=== PATIENT | female | born 1995 | race Caucasian/White ===

== ENCOUNTER 2022-12-17 13:56 | Outpatient (CLI) | payer OTHER, SELFPAY | END 2022-12-17 13:57 | disposition home or self-care (01) | LOC: NFLDREF 14:05 | PROVIDERS: PCP Family Medicine; Visit Provider Obstetrics & Gynecology | DX: O26.891 Other specified pregnancy related conditions, first trimester (principal); R10.9 Unspecified abdominal pain; O34.81 Maternal care for other abnormalities of pelvic organs, first trimester; N83.292 Other ovarian cyst, left side; Z3A.01 Less than 8 weeks gestation of pregnancy | CPT/HCPCS: 84702 ==

== ENCOUNTER 2022-12-17 22:40 | Emergency (ER) | payer OTHER, SELFPAY ==
[2022-12-17 22:53] VITALS: BP 123/88; PULSE 110; RESP 18; TEMP 36.8; O2SAT 99; BMI 23.4
--- NOTE | 2022-12-17 23:14 | CRLHL7_ITS ---
For Patients: As a result of the Century Cures Act, medical imaging exams and procedure reports are released immediately into your electronic medical record. You may view this report before your referring provider. If you have questions, please contact your health care provider. INDICATION: Left-sided pain, . TECHNIQUE: Ultrasound OB pelvis transabdominal and transvaginal. Real-time zhang-scale imaging of the pelvis was performed. COMPARISON: None. FINDINGS: There is a small fluid collection with probable surrounding decidual reaction within the mid uterine endometrium with a mean diameter of 5 mm, which corresponds to a gestational age of 5 weeks and 0 days. No yolk sac or pole identified. The uterus is otherwise unremarkable. There is a 2.7 cm simple cyst within the right ovary. The left ovary is normal. No free fluid in the pelvis. IMPRESSION: 5 mm fluid collection, probable gestational sac, within the mid uterine endometrium corresponding to a gestational age of 5 weeks and 0 days. No yolk sac or pole identified. Recommend close clinical follow-up with serial beta HCGs. Repeat ultrasound is available as clinically indicated. Normal left ovary. Dictated by Jaylon Parsons MD @ 12/18/2022 12:29:54 AM (Electronically Signed)
--- NOTE | 2022-12-17 23:31 | ED_ITS ---
HPI - General Chief complaint: OB/Uterine Contractions Stated complaint: ectopic Time Seen by Provider: 12/17/22 22:56 History of Present Illness HPI Narrative: Pt is a 27 year old woman who is and is currently 5 weeks presents with L flank pain. Pt has had no vaginal bleeding or discharge. Pt states the pain is mild and seems to worsen when she stretches. Pt had a quant HCG done earlier today which was 3078. Pt is concerned that she is having an ectopic . Pt has had no fevers, chills, dysuria, nausea, vomiting or rash. Pt is uncertain what her blood type is. No difficulties with her previous . Related Data Home Medications Medication Instructions Recorded Confirmed No Known Home Medications 12/17/22 12/17/22 Allergies Allergy/AdvReac Type Severity Reaction Status Date / Time No Known Drug Allergies Allergy Verified 12/17/22 22:56 Review of Systems Status of ROS: Reports: 10 or more systems reviewed and unremarkable except as noted in History and below PFSH PFS Social History Smoking Status: Never smoker Exam Narrative: Exam Narrative: EXAM GENERAL: Patient appears comfortable and well. EYES: No scleral icterus. ENT: Tympanic membranes and oropharynx normal. THYROID: no thyroid nodules or thyromegaly. LYMPH: No supraclavicular or cervical lymphadenopathy. SKIN: Visible skin seen during exam normal or with benign process only. EXT: No dependent lower extremity pedal edema. HEART: Regular rate and rhythm with no murmurs, rubs, or gallops. LUNGS: Clear to auscultation bilaterally with no crackles or wheezes. ABD: Soft, non tender, non distended. PSYCH: Good eye contact, speech is not pressured. Const: Vital Signs, click to edit/add: Vital Signs - 24 hr 12/17/22 22:53 Temperature 98.2 F Pulse Rate [Right Pulse Oximeter] 110 H Respiratory Rate 18 Blood Pressure [Ri ght Upper Arm] 123/88 Pulse Oximetry 99 Oxygen Delivery Me thod Room Air Course Course Hospital Course: Pt seen and examined, UA, CBC, Blood type collected as well as ultrasound of the pelvis. Vital Signs Vital signs: Initial Vital Signs Temperature 98.2 F 12/17/22 22:53 Temperature Source Temporal Artery Scan 12/17/22 22:53 Pulse Rate 110 H 12/17/22 22:53 Respiratory Rate 18 12/17/22 22:53 Blood Pressure 123/88 12/17/22 22:53 Blood Pressure Mean 99 12/17/22 22:53 Blood Pressure Position Sitting 12/17/22 22:53 Pulse Oximetry 99 12/17/22 22:53 Oxygen Delivery Method 12/17/22 22:53 Vital Signs Temperature 98.2 F 12/17/22 22:53 Pulse Rate 110 H 12/17/22 22:53 Respiratory Rate 18 12/17/22 22:53 Blood Pressure 123/88 12/17/22 22:53 Pulse Oximetry 99 12/17/22 22:53 Oxygen Delivery Method 12/17/22 22:53 Temperature 98.2 F 12/17/22 22:53 Pulse Rate 110 H 12/17/22 22:53 Respiratory Rate 18 12/17/22 22:53 Blood Pressure 123/88 12/17/22 22:53 Pulse Oximetry 99 12/17/22 22:53 Oxygen Delivery Method 12/17/22 22:53 MDM - OB/Uterine Contractions MDM Narrative Medical decision making narrative: Pt presents with lower abd pain during first trimester. Pt has no vaginal bleeding. Pt has normal vitals and exam. US shows 5 week gestation in the uterus with no concerning findings. Pt will be treated symptomatically with OB follow up. Differential Diagnosis Differential diagnosis: Likely premature labor and pre-eclampsia Medical Records Attestation: I reviewed the patient's medical records. Lab Data Labs: Lab Results 12/17/22 Range/Units 23:25 WBC 18.22 H (4.50-11.00) K/uL RBC 5.21 H (4.00-5.20) m/uL Hgb 16.1 H (12.0-16.0) gm/dL Hct 46.7 (33.0-51.0) % MCV 90 (80-100) fL MCH 31 (26-34) pg MCHC 35 (32-36) gm/dL RDW Coeff of Dante 12.2 (11.5-15.5) % Plt Count 332 (140-440) K/uL Neut % (Auto) 85.9 H (42.0-72.0) % Lymph % (Auto) 6.1 L (20-44) % Petroleum % (Auto) 5.8 (0.0-11.0) % Eos % (Auto) 0.7 (0.0-7.0) % Baso % (Auto) 0.1 (0.0-3.0) % Neut # (Auto) 15.70 H (1.7-7.0) K/uL Lymph # (Auto) 1.10 (0.90-2.90) K/uL Petroleum # (Auto) 1.10 H (0.00-0.90) K/UL Eos # (Auto) 0.10 (0.00-0.50) K/uL Baso # (Auto) 0.00 (0.00-0.30) K/uL Discharge Plan Discharge Clinical Impression: Condition: Stable Instructions: (ED) Additional Instructions: Continue current care Vitamin Follow up with OB Activity Level: No Restrictions Discharge Diet: Regular Prescriptions: No Action No Known Home Medications Follow Up/Referrals: Provider,Not a Local [Primary Care Provider] - Stand Alone Forms: Information [employer] Info Instructions
[2022-12-17 23:33] LABS: Basophils Percent Auto 0.1 % (0.0-3.0); Eosinophils Percent Auto 0.7 % (0.0-7.0); Hematocrit 46.7 % (33.0-51.0); Hemoglobin* 16.1 gm/dL (12.0-16.0); Immature Granulocytes Pct Auto 1.4 %; Lymphocytes Percent Auto 6.1 % (20-44); Mean Corpuscular HGB Conc 35 gm/dL (32-36); Mean Corpuscular Hemoglobin 31 pg (26-34); Mean Corpuscular Volume 90 fL (80-100); Monocytes Percent Auto 5.8 % (0.0-11.0); Neutrophils Percent Auto 85.9 % (42.0-72.0); Platelet Count* 332 K/uL (140-440); RDW Coefficient of Variation % 12.2 % (11.5-15.5); Red Blood Count 5.21 m/uL (4.00-5.20); White Blood Count* 18.22 K/uL (4.50-11.00)
[2022-12-17 23:35] LABS: Slide Review Reflex No
--- NOTE | 2022-12-17 23:43 | ED.NURSE ---
Report given to ADRIA Cabrera.
[2022-12-18 00:10] VITALS: BP 123/88; BP 125/78; PULSE 110; PULSE 89; RESP 18; TEMP 36.8; O2SAT 99
== END 2022-12-18 00:10 | disposition home or self-care (01) ==
PROVIDERS: Emergency Provider Internal Medicine
DX: Z34.81 Encounter for supervision of other normal pregnancy, first trimester (principal); Z3A.01 Less than 8 weeks gestation of pregnancy
CPT/HCPCS: 36415; 76817; 85025; 86850; 86900; 86901; 99283; 99284

== ENCOUNTER 2022-12-19 17:08 | Outpatient (REF) | payer OTHER, SELFPAY | END 2022-12-19 17:09 | disposition home or self-care (01) | LOC: LAB 17:08 | PROVIDERS: Visit Provider Obstetrics & Gynecology | DX: Z34.90 Encounter for supervision of normal pregnancy, unspecified, unspecified trimester (principal) | CPT/HCPCS: 36415; 84702 ==

== ENCOUNTER 2022-12-21 13:20 | Outpatient (CLI) | payer OTHER, SELFPAY | END 2022-12-21 13:21 | disposition home or self-care (01) | LOC: NFLDREF 12-24 11:32 | PROVIDERS: Referring Provider Family Medicine; Visit Provider Obstetrics & Gynecology | DX: Z34.90 Encounter for supervision of normal pregnancy, unspecified, unspecified trimester (principal) | CPT/HCPCS: 84702; 87086 ==

== ENCOUNTER 2022-12-28 09:14 | Outpatient (CLI) | payer OTHER, SELFPAY ==
--- NOTE | 2022-12-28 09:15 | CRLHL7_ITS ---
For Patients: As a result of the Cures Act, medical imaging exams and procedure reports are released immediately into your electronic medical record. You may view this report before your referring provider. If you have questions, please contact your health care provider. INDICATION: First trimester scan, establish dates. COMPARISON: None. TECHNIQUE: Real-time zhang-scale imaging of the pelvis was performed. FINDINGS: Sonographic imaging demonstrates a single living intrauterine gestation. The embryo demonstrates a regular cardiac rate measuring 113 beats per minute. The embryo`s crown-rump length measurement of 0.5 cm corresponds to a gestational age of 6 weeks 1 day with a sonographic due date of 08/22/2023. There is a normal-appearing yolk sac. There are no gross abnormalities noted within the embryo at this early state of development. The gestational sac has a normal appearance. There is a 1.6 x 0.9 x 1.9 cm perigestational hemorrhage. The amount of fluid within the sac appears appropriate for gestational age. The cervix is closed. The myometrium appears normal. The ovaries are of normal size. Simple anechoic right ovarian cyst measuring 2.5 cm. There are no suspicious fluid collections noted in the cul-de-sac. IMPRESSION: Single living intrauterine with sonographic gestational age 6 weeks 1 day and sonographic due date of 08/22/2023. No ectopic . Subchorionic hemorrhage measuring 1.6 x 0.9 x 1.9 cm Dictated by Stalin Gleason MD @ 12/28/2022 10:09:42 AM (Electronically Signed)
== END 2022-12-28 09:15 | disposition home or self-care (01) ==
LOC: US 09:15
PROVIDERS: Visit Provider Obstetrics & Gynecology
DX: Z34.90 Encounter for supervision of normal pregnancy, unspecified, unspecified trimester (principal); O20.9 Hemorrhage in early pregnancy, unspecified; Z3A.01 Less than 8 weeks gestation of pregnancy
CPT/HCPCS: 76817

== ENCOUNTER 2022-12-28 10:31 | Outpatient (CLI) | payer OTHER, SELFPAY ==
[2022-12-28 14:37] LABS: Chlamydia DNA Amplified* NOT DETECTED (No Detected); GC DNA Amplified* NOT DETECTED (No Detected)
== END 2022-12-28 10:32 | disposition home or self-care (01) ==
LOC: NFLDREF 10:50
PROVIDERS: Visit Provider Obstetrics & Gynecology
DX: Z11.3 Encounter for screening for infections with a predominantly sexual mode of transmission (principal)
CPT/HCPCS: 87491; 87591

== ENCOUNTER 2023-01-29 01:31 | Emergency (ER) | payer OTHER, SELFPAY ==
[2023-01-29 01:36] VITALS: BP 123/86; PULSE 104; RESP 20; TEMP 36.6; O2SAT 97; BMI 25.0
--- NOTE | 2023-01-29 01:37 | CRLHL7_ITS ---
For Patients: As a result of the Century Cures Act, medical imaging exams and procedure reports are released immediately into your electronic medical record. You may view this report before your referring provider. If you have questions, please contact your health care provider. INDICATION: First-trimester bleeding. TECHNIQUE: Ultrasound OB pelvis transabdominal. Real-time zhang-scale imaging of the pelvis was performed. COMPARISON: 12/28/2022. FINDINGS: There is a single intrauterine gestation. The embryo demonstrates a regular cardiac rate measuring 159 beats per minute. The embryo`s crown rump length measurement of 4.3 cm corresponds to a gestational age of 11 weeks 1 day with a sonographic due date of 08/19/2023. There is a normal appearing yolk sac. There are no gross abnormalities noted within the embryo at this early state of development. There is a heterogeneous collection adjacent to the gestational sac measuring 1.3 x 0.9 x 1.1 cm, suggestive of perigestational hemorrhage. The ovaries are of normal size. There are no suspicious fluid collections noted in the cul-de-sac. IMPRESSION: Single viable intrauterine with estimated gestational age of 11 weeks 1 day. Small subchorionic hematoma. It is difficult to discern if this is the same previous hematoma that has decreased in size versus a new hematoma given differences in technique. Dictated by Jack Smith MD @ 01/29/2023 3:14:15 AM (Electronically Signed)
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
[2023-01-29 01:54] LABS: Basophils Percent Auto 0.2 % (0.0-3.0); Eosinophils Percent Auto 1.8 % (0.0-7.0); Hematocrit 37.6 % (33.0-51.0); Hemoglobin* 13.1 gm/dL (12.0-16.0); Immature Granulocytes Pct Auto 1.2 %; Lymphocytes Percent Auto 20.2 % (20-44); Mean Corpuscular HGB Conc 35 gm/dL (32-36); Mean Corpuscular Hemoglobin 32 pg (26-34); Mean Corpuscular Volume 90 fL (80-100); Monocytes Percent Auto 8.9 % (0.0-11.0); Neutrophils Percent Auto 67.7 % (42.0-72.0); Platelet Count* 244 K/uL (140-440); RDW Coefficient of Variation % 12.5 % (11.5-15.5); Red Blood Count 4.16 m/uL (4.00-5.20); White Blood Count* 11.27 K/uL (4.50-11.00)
[2023-01-29 01:55] LABS: Slide Review Reflex No
[2023-01-29 02:09] LABS: Chloride* 106 mmol/L (96-114); Potassium* 4.4 mmol/L (3.6-5.1); Sodium* 136 mmol/L (135-149)
[2023-01-29 02:09] LABS: Appearance Urine Clear (Clear); Bilirubin Urine Negative (Negative); Blood Urine 3+ (Negative); Color Urine Yellow (Yellow); Glucose Urine Negative (Negative); Ketones Urine Negative (Negative); Leukocyte Esterase Urine Negative (Negative); Nitrite Urine Negative (Negative); Protein Urine Negative (Negative); Urobilinogen Urine 0.2 (0.2-1.0); pH Urine 5.5 (5.0-8.5)
[2023-01-29 02:12] LABS: Blood Urea Nitrogen* 16 mg/dL (5-24); Carbon Dioxide* 23 mmol/L (20-32); Creatinine* 0.5 mg/dL (0.5-1.5); Est. Creatinine Clearance* 156.82; Estimated Glomerular Filt Rate 131 ml/min; Glucose* 99 mg/dL (60-115)
[2023-01-29 02:17] LABS: INR 0.91 (0.91-1.10); Partial Thromboplastin Time* 25 Seconds (23-33); Prothrombin Time 12.9 Seconds
[2023-01-29 02:19] LABS: Squamous Epithelial Cell Urine Few (None-Few); WBC Urine 0-2 (0-5)
--- NOTE | 2023-01-29 02:28 | PC.NURSE ---
US in room
--- NOTE | 2023-01-29 02:47 | PC.NURSE ---
DC instructions gone over with patient and significant other. stated understanding with no questions.
== END 2023-01-29 02:48 | disposition home or self-care (01) ==
PROVIDERS: Emergency Provider Internal Medicine
DX: O20.9 Hemorrhage in early pregnancy, unspecified (principal)
CPT/HCPCS: 36415; 76815; 80048; 81003; 81015; 85025; 85610; 85730; 99283; 99284

== ENCOUNTER 2023-02-01 11:35 | Outpatient (CLI) | payer OTHER, SELFPAY | END 2023-02-01 11:36 | disposition home or self-care (01) | LOC: NFLDREF 02-04 04:45 | PROVIDERS: Visit Provider Obstetrics & Gynecology | DX: Z34.91 Encounter for supervision of normal pregnancy, unspecified, first trimester (principal) | CPT/HCPCS: 86592; 86703; 86762; 86787; 86803; 87340 ==

== ENCOUNTER 2023-02-02 01:36 | Emergency (ER) | payer OTHER, SELFPAY ==
[2023-02-02 01:40] VITALS: BP 117/80; PULSE 72; RESP 20; TEMP 36.5; O2SAT 96; BMI 25.5
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
[2023-02-02 02:17] LABS: Hemoglobin* 13.1 gm/dL (12.0-16.0)
--- NOTE | 2023-02-02 02:19 | PC.NURSE ---
patient discharged home with , stated understanding of DC instruction, stated bleeding has slowed down. made patient aware that we will call her with her lab results only if they are abnormal and that she should follow up with her OB per DC instruction.
== END 2023-02-02 02:21 | disposition home or self-care (01) ==
PROVIDERS: Emergency Provider Family Medicine
DX: O20.0 Threatened abortion (principal)
CPT/HCPCS: 36415; 84702; 85018; 99283

== ENCOUNTER 2023-04-18 08:07 | Outpatient (CLI) | payer OTHER, SELFPAY ==
--- NOTE | 2023-04-18 08:15 | CRLHL7_ITS ---
For Patients: As a result of the Century Cures Act, medical imaging exams and procedure reports are released immediately into your electronic medical record. You may view this report before your referring provider. If you have questions, please contact your health care provider. INDICATION: History of labor COMPARISON: 03/21/2023 TECHNIQUE: Real time zhang scale imaging of the fetus was performed. FINDINGS: Sonographic imaging demonstrates a single living intrauterine gestation. Fetus demonstrates a regular cardiac rate of 142 beats per minute. Fetus has a vertex position. The placenta lies anteriorly without evidence of placenta previa. Amniotic fluid volume appears normal and there is a single deepest vertical pocket: 3.2 cm. Cervix is closed and measures 3.3 cm. The estimated weight is 482gm which lies at the 53rd %. BPD 54th percentile. HC 19th percentile. AC 31st percentile. FL 73rd percentile. The HC/AC ratio measures 1.16 range (1.05-1.23). IMPRESSION: Closed cervix measuring 3.3 cm. Sonographic gestational age 22 weeks 1 day and sonographic due date of 08/21/2023. Dedicated anatomic survey not performed. Dictated by Stalin Gleason MD @ 04/18/2023 12:20:42 PM (Electronically Signed)
== END 2023-04-18 08:08 | disposition home or self-care (01) ==
PROVIDERS: Visit Provider Obstetrics & Gynecology
DX: O09.212 Supervision of pregnancy with history of pre-term labor, second trimester (principal); Z3A.22 22 weeks gestation of pregnancy
CPT/HCPCS: 76816

== ENCOUNTER 2023-05-02 08:40 | Outpatient (CLI) | payer OTHER, SELFPAY ==
--- NOTE | 2023-05-02 08:45 | CRLHL7_ITS ---
For Patients: As a result of the Century Cures Act, medical imaging exams and procedure reports are released immediately into your electronic medical record. You may view this report before your referring provider. If you have questions, please contact your health care provider. INDICATION: female. History of labor. Assess cervical length. TECHNIQUE: Limited transabdominal obstetrical ultrasound. FINDINGS: Single living intrauterine in breech presentation. Anterior and slightly right-sided placenta. heart rate 142 beats per minute. Normal amniotic fluid. Single deepest pocket measuring 4.7 cm. Closed cervix measuring 4 cm. IMPRESSION: Closed cervix measuring 4 cm transabdominally. Dictated by Willian Newton MD @ 05/02/2023 10:27:49 AM (Electronically Signed)
== END 2023-05-02 08:41 | disposition home or self-care (01) ==
LOC: US 08:41
PROVIDERS: Visit Provider Obstetrics & Gynecology
DX: O09.219 Supervision of pregnancy with history of pre-term labor, unspecified trimester (principal)
CPT/HCPCS: 76816; 76817

== ENCOUNTER 2023-05-30 09:27 | Outpatient (CLI) | payer OTHER, SELFPAY | END 2023-05-30 09:28 | disposition home or self-care (01) | LOC: NFLDREF 06-02 08:47 | PROVIDERS: Visit Provider Obstetrics & Gynecology | DX: Z34.90 Encounter for supervision of normal pregnancy, unspecified, unspecified trimester (principal) | CPT/HCPCS: 86592 ==

== ENCOUNTER 2023-05-31 08:05 | Outpatient (CLI) | payer OTHER, SELFPAY | END 2023-05-31 08:06 | disposition home or self-care (01) | LOC: NFLDREF 20:31 | PROVIDERS: Visit Provider Obstetrics & Gynecology | DX: Z34.93 Encounter for supervision of normal pregnancy, unspecified, third trimester (principal); Z3A.28 28 weeks gestation of pregnancy; R73.09 Other abnormal glucose | CPT/HCPCS: 82951; 82952 ==

== ENCOUNTER 2023-06-12 03:09 | Outpatient (CLI) | payer OTHER, SELFPAY ==
[2023-06-12 03:23] VITALS: BP 115/65; PULSE 91; TEMP 36.7
[2023-06-12 04:02] LABS: Appearance Urine Clear (Clear); Bilirubin Urine Negative (Negative); Blood Urine 1+ (Negative); Color Urine Yellow (Yellow); Glucose Urine Negative (Negative); Ketones Urine Negative (Negative); Leukocyte Esterase Urine Negative (Negative); Nitrite Urine Negative (Negative); Protein Urine Negative (Negative); Specific Gravity Urine 1.025 (1.000-1.030); Urobilinogen Urine 0.2 (0.2-1.0); pH Urine 6.5 (5.0-8.5)
[2023-06-12 04:22] LABS: Clue Cells No Clue Cells Seen (None Seen); Trichomonas No Trichomonas Seen (None Seen); Yeast No Yeast Seen (None Seen)
[2023-06-12 04:23] LABS: RBC Urine 0-2 (0-2); Squamous Epithelial Cell Urine Few (None-Few); WBC Urine 0-2 (0-5)
--- NOTE | 2023-07-02 17:10 | PC.OBNST ---
NST Note NST Note Start: 06/12/23 03:17 Freq: ONCE Status: Discharge Protocol: Document 06/12/23 04:22 ALEXANDRE (Rec: 06/12/23 04:24 ALEXANDRE [id number]) NST Note 2 Para (# of births) 1 EDC 08/22/23 Gestational Age In Weeks & Days 29 Weeks & 6 Days Patient Presented with Complaint(s) of Vaginal bleeding Reactive Yes ADRIA Schulte, RN Date 06/12/23 Reactive Yes ADRIA Ring RN Date 06/12/23 OB NST charge Yes Complete NST Note via Write Note Yes The provider's electronic signature indicates the NST is reactive/appropriate for gestational age. *Note to provider: If an addendum is required, open the patient's chart and click on the note under the Nurse/Allied Health tab.
== END 2023-06-12 04:55 | disposition home or self-care (01) ==
LOC: OB OUT 03:09 → OB 03:10
PROVIDERS: Visit Provider Obstetrics & Gynecology
DX: Z34.93 Encounter for supervision of normal pregnancy, unspecified, third trimester (principal); Z3A.30 30 weeks gestation of pregnancy
CPT/HCPCS: 59025; 81001; 87210; 99213

== ENCOUNTER 2023-06-13 22:02 | Outpatient (CLI) | payer OTHER, SELFPAY ==
[2023-06-13] VITALS (23 sets, daily range): BP systolic 118; BP diastolic 69; PULSE 88–111; RESP 16; TEMP 36.9; O2SAT 98–100
[2023-06-13] MEDS: ACETAMINOPHEN 500 MG TABLET 1000 MG PO (22:51)
[2023-06-14 00:03] VITALS: PULSE 103; O2SAT 100
[2023-06-14 00:08] VITALS: PULSE 104; O2SAT 98
--- NOTE | 2023-07-02 17:15 | PC.OBNST ---
NST Note NST Note Start: 06/13/23 22:22 Freq: ONCE Status: Discharge Protocol: Document 06/14/23 00:45 BRM (Rec: 06/14/23 00:48 BRM [id number]) NST Note 2 Para (# of births) 1 EDC 08/22/23 Gestational Age In Weeks & Days 30 Weeks & 1 Days Patient Presented with Complaint(s) of Observation after an injury If Observation after an injury, describe Fall at work at 1830 Reactive Yes ADRIA Schulte RN Date 06/14/23 Reactive Yes ADRIA Butcher RN Date 06/14/23 OB NST charge Yes Complete NST Note via Write Note Yes The provider's electronic signature indicates the NST is reactive/appropriate for gestational age. *Note to provider: If an addendum is required, open the patient's chart and click on the note under the Nurse/Allied Health tab.
== END 2023-06-14 00:44 | disposition home or self-care (01) ==
LOC: OB OUT 22:03 → OB 22:03
PROVIDERS: Visit Provider Obstetrics & Gynecology
DX: Z34.93 Encounter for supervision of normal pregnancy, unspecified, third trimester (principal); Z3A.30 30 weeks gestation of pregnancy
CPT/HCPCS: 59025; 99213; A9270

== ENCOUNTER 2023-07-18 09:19 | Outpatient (CLI) | payer BC, SELFPAY ==
[2023-07-18 09:39] VITALS: BP 122/80; PULSE 87
[2023-07-18 09:40] VITALS: PULSE 91; O2SAT 96
[2023-07-18 09:41] VITALS: RESP 16; TEMP 36.6
[2023-07-18] MEDS: ACETAMINOPHEN 500 MG TABLET 1000 MG PO (10:20)
[2023-07-18 10:34] LABS: Total Protein Urine 22 mg/dL
[2023-07-18 10:35] LABS: Creatinine Urine 158.2 mg/dL
[2023-07-18 10:53] LABS: Hemoglobin* 10.6 gm/dL (12.0-16.0); Mean Corpuscular HGB Conc 33 gm/dL (32-36); Mean Corpuscular Hemoglobin 28 pg (26-34); Mean Corpuscular Volume 84 fL (80-100); Platelet Count* 252 K/uL (140-440); Red Blood Count 3.79 m/uL (4.00-5.20)
[2023-07-18 10:54] LABS: Slide Review Reflex No
[2023-07-18 11:07] LABS: Alanine Aminotransferase* 15 U/L (4-35); Aspartate Amino Transferase* 18 U/L (12-35); Blood Urea Nitrogen* 4 mg/dL (5-24); Creatinine* 0.3 mg/dL (0.5-1.5); Estimated Glomerular Filt Rate 147 ml/min
[2023-07-18 11:24] VITALS: BP 112/59; PULSE 88
--- NOTE | 2023-07-18 11:52 | PC.OBNST ---
NST Note NST Note Start: 07/18/23 09:29 Freq: ONCE Status: Active Protocol: Document 07/18/23 11:50 ABP (Rec: 07/18/23 11:52 ABP [id number]) NST Note 2 Para (# of births) 1 EDC 08/22/23 Gestational Age In Weeks & Days 35 Weeks & 0 Days High Risk Factors History of Labor/ Delivery Patient Presented with Complaint(s) of Other Other Complaints Patient reports not feeling well since last Tuesday. Had a higher blood pressure for her (130s/80s) taken by a coworker at work this morning. Has had on and off cramping for the last week. Threw up twice this morning with no known sick contacts. Reactive Yes ADRIA Garcia RN Date 07/18/23 Reactive Yes ADRIA Stewart RN Date 07/18/23 OB NST charge Yes Complete NST Note via Write Note Yes The provider's electronic signature indicates the NST is reactive/appropriate for gestational age. *Note to provider: If an addendum is required, open the patient's chart and click on the note under the Nurse/Allied Health tab.
== END 2023-07-18 11:35 | disposition home or self-care (01) ==
LOC: OB OUT 09:21 → OB 09:22
PROVIDERS: PCP Obstetrics & Gynecology; Visit Provider Obstetrics & Gynecology
DX: O47.03 False labor before 37 completed weeks of gestation, third trimester (principal); Z3A.35 35 weeks gestation of pregnancy
CPT/HCPCS: 36415; 59025; 82565; 82570; 84156; 84450; 84460; 84520; 85027; 99213; A9270

== ENCOUNTER 2023-07-20 19:01 | Outpatient (CLI) | payer BC, SELFPAY ==
[2023-07-20 19:27] VITALS: BP 134/69; PULSE 102
[2023-07-20 19:29] VITALS: PULSE 116; O2SAT 98
[2023-07-20 19:43] LABS: Bilirubin Urine Negative (Negative); Blood Urine Negative (Negative); Color Urine Yellow (Yellow); Glucose Urine Negative (Negative); Ketones Urine 3+ (Negative); Leukocyte Esterase Urine Negative (Negative); Nitrite Urine Negative (Negative); Protein Urine 1+ (Negative); Specific Gravity Urine >= 1.030 (1.000-1.030); Urobilinogen Urine 0.2 (0.2-1.0)
[2023-07-20 19:47] LABS: Appearance Urine Clear (Clear)
[2023-07-20] MEDS: ACETAMINOPHEN 500 MG TABLET 1000 MG PO (20:11)
[2023-07-20 20:28] LABS: Bacteria Urine Few; RBC Urine 0-2 (0-2); Squamous Epithelial Cell Urine Moderate (None-Few)
--- NOTE | 2023-07-20 22:19 | PC.OBNST ---
NST Note NST Note Start: 07/20/23 22:16 Freq: ONCE Status: Active Protocol: Document 07/20/23 22:16 ADILIACYNTHIAISABEL (Rec: 07/20/23 22:19 ADILIANIK [id number]) NST Note 2 Para (# of births) 1 EDC 08/22/23 Gestational Age In Weeks & Days 35 Weeks & 2 Days High Risk Factors History of Labor/ Delivery Patient Presented with Complaint(s) of Contractions/cramping,Pain If Pain, describe location dull flank pain that is sharp @ times. cramping in vagina/ butt Reactive Yes Appropriate for Gestational Age Yes RN Onelia Malik RN Date 07/20/23 Reactive Yes Appropriate for Gestational Age Yes ADRIA Montoya RNC Date 07/20/23 OB NST charge Yes Complete NST Note via Write Note Yes The provider's electronic signature indicates the NST is reactive/appropriate for gestational age. *Note to provider: If an addendum is required, open the patient's chart and click on the note under the Nurse/Allied Health tab.
== END 2023-07-20 20:51 | disposition home or self-care (01) ==
LOC: OB OUT 19:07 → OB 19:09
PROVIDERS: PCP Obstetrics & Gynecology; Visit Provider Obstetrics & Gynecology
DX: O47.03 False labor before 37 completed weeks of gestation, third trimester (principal); Z3A.35 35 weeks gestation of pregnancy
CPT/HCPCS: 59025; 81003; 81015; 87086; 99213; A9270

== ENCOUNTER 2023-07-24 21:44 | Outpatient (CLI) | payer BC, SELFPAY ==
[2023-07-24 21:58] VITALS: BP 123/77; PULSE 83; PULSE 84; TEMP 36.8; O2SAT 97
[2023-07-24 22:17] LABS: Amnisure Rom* Negative
--- NOTE | 2023-07-24 22:44 | PC.OBNST ---
NST Note NST Note Start: 07/24/23 21:48 Freq: ONCE Status: Discharge Protocol: Document 07/24/23 22:43 ARNIE (Rec: 07/24/23 22:44 ARNIE [id number]) NST Note 2 Para (# of births) 1 EDC 08/23/23 Gestational Age In Weeks & Days 35 Weeks & 5 Days Patient Presented with Complaint(s) of Leaking fluid Reactive Yes Appropriate for Gestational Age Yes RN Florentino Haile RN Date 07/24/23 Reactive Yes Appropriate for Gestational Age Yes ADRIA Schulte RN Date 07/24/23 OB NST charge Yes Complete NST Note via Write Note Yes The provider's electronic signature indicates the NST is reactive/appropriate for gestational age. *Note to provider: If an addendum is required, open the patient's chart and click on the note under the Nurse/Allied Health tab.
== END 2023-07-24 22:35 | disposition home or self-care (01) ==
LOC: OB OUT 21:45 → OB 21:45
PROVIDERS: Advanced Practice Midwife; PCP Obstetrics & Gynecology; Visit Provider Obstetrics & Gynecology
DX: O47.03 False labor before 37 completed weeks of gestation, third trimester (principal); Z3A.35 35 weeks gestation of pregnancy
CPT/HCPCS: 59025; 84112; 99213

== ENCOUNTER 2023-07-25 11:15 | Outpatient (CLI) | payer BC, SELFPAY ==
[2023-07-26 13:25] LABS: Strep B DNA Probe NEGATIVE (Negative)
[2023-07-26 13:51] LABS: Strep B Pen/Amox Allergy No
== END 2023-07-25 11:16 | disposition home or self-care (01) ==
PROVIDERS: PCP Obstetrics & Gynecology; Visit Provider Obstetrics & Gynecology
DX: Z34.93 Encounter for supervision of normal pregnancy, unspecified, third trimester (principal); Z3A.36 36 weeks gestation of pregnancy
CPT/HCPCS: 87081; 87653

== ENCOUNTER 2023-07-29 20:21 | Outpatient (CLI) | payer BC, SELFPAY ==
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
[2023-07-30] MEDS: LACTATED RINGERS 1000 ML 1,000 ML 125 ML IV (00:34)
[2023-07-30 01:10] VITALS: BMI 30.7
[2023-07-30 04:44] VITALS: BP 125/59; PULSE 86; TEMP 36.4
--- NOTE | 2023-07-30 07:31 | PC.OBNST ---
NST Note NST Note Start: 07/29/23 20:25 Freq: ONCE Status: Active Protocol: Document 07/30/23 06:30 SHAWNA (Rec: 07/30/23 07:31 SHAWNA [id number]) NST Note 2 Para (# of births) 1 EDC 08/22/23 Gestational Age In Weeks & Days 36 Weeks & 5 Days High Risk Factors History of Labor/ Delivery Patient Presented with Complaint(s) of Contractions/cramping Reactive Yes Appropriate for Gestational Age Yes ADRIA Lopez Date 07/30/23 Reactive Yes Appropriate for Gestational Age Yes ADRIA Tucker Date 07/30/23 OB NST charge Yes Complete NST Note via Write Note Yes The provider's electronic signature indicates the NST is reactive/appropriate for gestational age. *Note to provider: If an addendum is required, open the patient's chart and click on the note under the Nurse/Allied Health tab.
--- NOTE | 2023-07-31 11:27 | PC.OBNST ---
NST Note NST Note Start: 07/29/23 20:25 Freq: ONCE Status: Discharge Protocol: Document 07/30/23 06:30 SHAWNA (Rec: 07/30/23 07:31 SHAWNA [id number]) NST Note 2 Para (# of births) 1 EDC 08/22/23 Gestational Age In Weeks & Days 36 Weeks & 5 Days High Risk Factors History of Labor/ Delivery Patient Presented with Complaint(s) of Contractions/cramping Reactive Yes Appropriate for Gestational Age Yes ADRIA Lopez Date 07/30/23 Reactive Yes Appropriate for Gestational Age Yes ADRIA Tucker Date 07/30/23 OB NST charge Yes Complete NST Note via Write Note Yes The provider's electronic signature indicates the NST is reactive/appropriate for gestational age. *Note to provider: If an addendum is required, open the patient's chart and click on the note under the Nurse/Allied Health tab.
== END 2023-07-30 08:30 | disposition home or self-care (01) ==
LOC: OB OUT 20:21 → OB 20:22
PROVIDERS: PCP Obstetrics & Gynecology; Visit Provider Obstetrics & Gynecology
DX: O60.03 Preterm labor without delivery, third trimester (principal); Z3A.37 37 weeks gestation of pregnancy
CPT/HCPCS: 59025; 99213; J7120

== ENCOUNTER 2023-08-02 15:55 | Outpatient (CLI) | payer BC, SELFPAY ==
--- NOTE | 2023-08-02 16:00 | CRLHL7_ITS ---
For Patients: As a result of the Century Cures Act, medical imaging exams and procedure reports are released immediately into your electronic medical record. You may view this report before your referring provider. If you have questions, please contact your health care provider. INDICATION: labor without delivery. Next none. COMPARISON: none TECHNIQUE: Real time zhang scale imaging of the fetus was performed. Without non-stress testing. FINDINGS: Sonographic imaging demonstrates a single living intrauterine gestation. Fetus demonstrates a regular cardiac rate of 124 beats per minute. Fetus has a vertex orientation. The amniotic fluid volume appears normal and there is a four-quadrant fluid volume index measurement of 17.8 cm. Single deepest pocket measurement is at the upper limit of normal at 8.5 cm. The fetus was active and demonstrated normal breathing movements. There was normal flexion and extension of the trunk and extremities. IMPRESSION: Normal biophysical profile score of 8 out of 8. Dictated by Willian Newton MD @ 08/03/2023 12:06:24 PM (Electronically Signed)
== END 2023-08-02 15:56 | disposition home or self-care (01) ==
LOC: US 15:56
PROVIDERS: PCP Obstetrics & Gynecology; Visit Provider Obstetrics & Gynecology
DX: O60.00 Preterm labor without delivery, unspecified trimester (principal)
CPT/HCPCS: 76819

== ENCOUNTER 2023-08-04 01:18 | Outpatient (CLI) | payer BC, SELFPAY ==
[2023-08-04 01:30] VITALS: BP 119/64; PULSE 83
--- NOTE | 2023-08-04 04:22 | PC.OBNST ---
NST Note NST Note Start: 08/04/23 01:07 Freq: ONCE Status: Active Protocol: Document 08/04/23 04:21 AM (Rec: 08/04/23 04:22 AM [id number]) NST Note 2 Para (# of births) 1 EDC 08/22/23 Gestational Age In Weeks & Days 37 Weeks & 3 Days Patient Presented with Complaint(s) of Contractions/cramping Reactive Yes Appropriate for Gestational Age Yes RN Mukesh RNC Date 08/04/23 Reactive Yes Appropriate for Gestational Age Yes RN Marbella RN Date 08/04/23 OB NST charge Yes Complete NST Note via Write Note Yes The provider's electronic signature indicates the NST is reactive/appropriate for gestational age. *Note to provider: If an addendum is required, open the patient's chart and click on the note under the Nurse/Allied Health tab.
== END 2023-08-04 04:15 | disposition home or self-care (01) ==
LOC: OB OUT 01:19 → OB 01:27
PROVIDERS: PCP Obstetrics & Gynecology; Visit Provider Obstetrics & Gynecology
DX: O47.1 False labor at or after 37 completed weeks of gestation (principal); Z3A.37 37 weeks gestation of pregnancy
CPT/HCPCS: 59025; 99213

== ENCOUNTER 2023-08-04 17:00 | Inpatient (IN) | payer BC, SELFPAY ==
[2023-08-04] VITALS (42 sets, daily range): BP systolic 101–175; BP diastolic 55–85; PULSE 64–129; RESP 16; TEMP 36.7–37.1; O2SAT 94–100; BMI 30.5
[2023-08-04] MEDS: LACTATED RINGERS 1000 ML 1,000 ML 999 ML IV ×2 (17:25→18:30)
[2023-08-04] MEDS: LIDOCAINE 2% (PF) 5 ML VIAL EPIDURAL (18:09)
[2023-08-04] MEDS: ROPIVACAINE 0.2% 100 ml 100 ML 12 MG EPIDURAL (18:09)
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
[2023-08-04] MEDS: PHENYLEPHRINE 100 MCG/ML SYRINGE IVP (18:51)
--- NOTE | 2023-08-04 21:48 | PM.OBPNL ---
Subjective Time Seen by Provider: 21:30 Date Seen: 08/04/23 Narrative: Patient is comfortable with epiural. Contractions spacing. Objective Vital Signs: Last Vital Signs Temp 98.1 F 08/04/23 19:17 Pulse 80 08/04/23 21:44 Resp 16 08/04/23 19:17 BP 101/55 L 08/04/23 21:44 Pulse Ox 100 08/04/23 18:23 Pelvic Exam Dilation (cm): 7 Effacement (%): 90 Station: -1 Contractions Monitor mode: External Contraction Frequency: 6-7 minutes Contraction pattern: Irregular Contraction intensity: Strong/Firm Assessment Station: -1 Amniotic Membrane Status: AROM Status: Category l Heart Rate Baseline: 135 Residential Variability: Moderate (6-25) Monitor Accelerations: Present Monitor Decelerations: None Plan Plan: AROM. Continue expectant management.
[2023-08-05] VITALS (35 sets, daily range): BP systolic 103–142; BP diastolic 56–93; PULSE 77–110; RESP 16; TEMP 36.5–37.1; O2SAT 95–98
[2023-08-05] MEDS: LACTATED RINGERS 1000 ML 1,000 ML 125 ML IV (01:23)
[2023-08-05] MEDS: ROPIVACAINE 0.2% 100 ml 100 ML 12 MG EPIDURAL (01:52)
[2023-08-05] MEDS: OXYTOCIN 30 unit/500 ML in NS 30 UNIT/500 ML BAG 300 UNIT IVPB (02:54)
--- NOTE | 2023-08-05 03:00 | W.PM.OBVAGDE ---
OB Procedure Vag Delivery Mother Details Mother Details: The patient is a 28 year-old, 2, Para 1, admitted on 08/04/23 at 37 3/7 weeks gestation in spontaneous labor. : 2 Para: 1 Weeks Gestation: 37.3 Admission Date: 08/04/23 Additional Details Amniotic Membrane Status: AROM Amniotic Membrane Rupture Date: 08/04/23 Amniotic Membrane Rupture Time: 21:33 Amniotic Membrane Fluid Description: Clear Analgesia/Anesthesia Type: Epidural (@1809) Waterbirth: No Pitcoin: No Intrapartal Events: None Labor Onset: 16:50 Complete: 02:20 Pushin:30 Heart: heart tones during second stage were category 1. Delivery Details Delivery Date: 08/05/23 Delivery Time: 02:47 Route of delivery: Gender: Female Viability: Alive; Heart Rate Present Position at Delivery: OA Delivery Details: Delivered over intact perineum via spontaneous vaginal delivery. Infant was placed on maternal abdomen.? Cord was clamped and cut after a 30-60 second delay. Nose and mouth were bulb suctioned.? Infant weight pending. Additional Details Placenta Delivery Time: 02:54 Placental Delivery Description: Spontaneous Procedure Done: Global Blood Loss: 125 Laceration: None Blood Loss Measurement Type: QBL Bakri Used: No Sponge/Need Count Correct: Yes Cord Vessel Description: 3 Vessels Event Summary Status: Mother and infant were stable after delivery. Disposition: floor
[2023-08-05] MEDS: IBUPROFEN 600 MG TABLET PO ×4 (04:40→23:25)
[2023-08-05] MEDS: ACETAMINOPHEN 500 MG TABLET 1000 MG PO ×3 (08:12→20:03)
[2023-08-05] MEDS: DOCUSATE SODIUM 100 MG CAPSULE PO (14:16)
[2023-08-06 07:20] LABS: Hemoglobin* 10.3 gm/dL (12.0-16.0)
--- NOTE | 2023-08-06 09:06 | PM.OBPNVD1 ---
OB - PN:Subj Subjective Time Seen by Provider: 08:50 Date Seen: 08/06/23 Patient comments OB post-: no complaints status: Narrative: The patient feels well. Her cramping is well controlled with ibuprofen and Tylenol. Lochia is normal. She continues to work on breast-feeding, and states that sometimes latch is in feeds well, and other times she tired and uninterested. OB - PN: Obj Exam Physical Exam: Vital signs: Temp Pulse Resp BP Pulse Ox O2 Del Method 97.7 F 82 16 127/85 98 Room Air 08/05/23 23:00 08/05/23 23:00 08/05/23 23:00 08/05/23 23:00 08/05/23 23:00 08/05/23 23:00 Constitutional: Constitutional: no acute distress Routine Respiratory Exam: Respiratory: Present CTA bilaterally Routine Cardiovascular Exam: Cardiovascular: Present RRR Routine Abdominal Exam: Abdominal: Present soft; Absent tenderness Fundus: Present firm Routine Extremities Exam: Extremities: Present normal inspection; Absent calf tenderness OB - PN: Obj Data Labs Labs: Laboratory Results - last 24 hr 08/06/23 06:50 Hgb 10.3 L OB - PN: A/P Delivery Assessment and Plan (1) Status post normal vaginal delivery: Status: Acute Plan day: 1 Plan: routine care
[2023-08-06 09:46] VITALS: BP 121/83; PULSE 80; RESP 16; TEMP 36.4; O2SAT 98
[2023-08-06 16:39] VITALS: BP 121/83; PULSE 75; RESP 16; TEMP 36.8; O2SAT 95
[2023-08-06] MEDS: IBUPROFEN 600 MG TABLET PO (18:58)
[2023-08-06 20:04] VITALS: BP 120/78; PULSE 81; RESP 18; TEMP 36.7; O2SAT 97
[2023-08-06] MEDS: ACETAMINOPHEN 500 MG TABLET 1000 MG PO (22:50)
[2023-08-07 04:00] VITALS: BP 118/82; PULSE 71; RESP 18; TEMP 36.4; O2SAT 97
[2023-08-07 08:38] VITALS: BP 128/88; PULSE 70; RESP 18; TEMP 36.8; O2SAT 97
[2023-08-07] MEDS: DOCUSATE SODIUM 100 MG CAPSULE PO ×2 (09:49)
[2023-08-07] MEDS: IBUPROFEN 600 MG TABLET PO (09:49)
--- NOTE | 2023-08-07 12:01 | P.DS_ITS ---
DS: Providers Provider Time Seen by Provider: 11:50 Date Seen: 08/07/23 Date of admission: 08/04/23 17:00 Primary care physician: Chuyita Maciel MD Admitting Clinician: Carmela Wheeler MD Attending Physician on discharge: Carmela Wheeler MD Date of Discharge: 08/07/23 DS: Diagnosis Discharge Diagnosis (1) Status post normal vaginal delivery: Status: Acute Exam Const: Vital Signs, click to edit/add: Vital Signs - 24 hr 08/06/23 16:39 08/06/23 20:04 08/07/23 04:00 Temperature 98.3 F 98.0 F 97.6 F Pulse Rate [Pulse Oximeter] 75 81 71 Respiratory Rate 16 18 18 Blood Pressure [Le ft Arm] 121/83 120/78 118/82 Pulse Oximetry 95 97 97 Oxygen Delivery Me thod Room Air Room Air Room Air 08/07/23 08:38 Temperature 98.2 F Pulse Rate [Pulse Oximeter] 70 Respiratory Rate 18 Blood Pressure [Le ft Arm] 128/88 Pulse Oximetry 97 Oxygen Delivery Me thod Room Air Documenting provider has reviewed patient's vital signs: yes Common normals: no apparent distress and oriented x3 General appearance: cooperative and comfortable HENMT: Common normals: normocephalic Head and scalp: normocephalic Resp: Common normals: normal respiratory effort Cardio: Common normals: regular rate and regular rhythm Rate: regular rate Rhythm: regular rhythm GI: Common normals: soft to palpation and non-tender Inspection: normal to inspection Palpation: soft Extremity: Common normals: normal to inspection and no pedal edema Neuro: Common normals: oriented x3 Psych: Common normals: affect normal OB - DS: Summary Hospital Course Hospital Course: The patient is a 28 year old G 2 now P 1102 at 37 3/7 weeks gestation that was admitted to the Center on 08/04/23 for spontaneous onset of labor. She had an uncomplicated vaginaldelivery. She delivered a viable female . She is breast feeding. the patient has done well. Peripartum Data delivery method: Vaginal Laceration description: None complications: none [place] Infant Gender: Female Discharge Plan: Home Status at Discharge Functional status at discharge: independent ambulation Overall status at discharge: patient is back to baseline Time Spent with Patient Time attestation: Total time spent providing and/or coordinating discharge services: Time spent: Less than 30 minutes Discharge Plan Discharge Disposition: Home, Self-Care Date of Admission: 08/04/23 17:00 Attending Provider on Discharge: Carmela Wheeler Primary Care Provider: Chuyita Maciel Condition: Stable Anticipated Discharge Date/Time: 08/07/23 12:05 Discharge Medications: New docusate sodium 100 mg Capsule 100 mg PO DAILY Qty: 30 0RF ibuprofen 600 mg Tablet 600 mg PO Q6H PRN30 Days Qty: 30 0RF (DME) breast pump Device See Rx Instructions .Route Qty: 1 0RF Rx Instructions: As directed Continued calcium carbonate [Tums] 200 mg calcium (500 mg) tablet,chewable 200 mg PO BID DHA 200 mg capsule 200 mg PO DAILY acetaminophen [Tylenol] 325 mg tablet 325 mg PO ONCE PRN ferrous sulfate 325 mg (65 mg iron) tablet 325 mg PO Q OTHER DAY Qty: 30 0RF Discharge Orders: Discharge Order (Routine); Ordered 08/07/23 Ordered By: Carmela Wheeler Additional Instructions: Discharge instructions were reviewed with the patient including signs and symptoms of infection and home going medications Nothing vaginally for 6 weeks: no tampons or intercourse Do not drive while taking narcotic pain medication(s) Off Work or School for 8 weeks Symptoms to report to doctor: * Bleeding that saturates more than one pad per hour * Passing clots larger than the size of a golf ball * Pain not relieved by prescribed medication * Fever above 100.4 degrees Fahrenheit * A foul vaginal odor * Difficulty in emotions, mood, and functions * Thoughts of hurting yourself and/or * Painful, reddened area in your breast * Any drainage, redness, or tenderness in your IV/epidural site * Severe headache that doesn't improve after taking medications * Changes in vision, including temporary loss of vision, blurred vision, and/or light sensitivity * Upper abdominal pain (usually under ribs on the right side) * Decrease in urination or painful, frequent urinating * Chest pain * Shortness of breath * Tenderness or pain with redness and/swelling in the calf(s) of your leg Optional 2-week visit: discuss feeding concerns, review control options and screen for anxiety/depression. 6-week visit for an annual exam. consultation services are available to all mothers and babies for the first year after delivery.? To make an appointment, please call [phone]. Activity Level: Activity as Tolerated Activity Detail: Nothing in the vagina for 6 weeks Discharge Diet: Regular Follow Up Appointments: Chuyita Maciel MD [Primary Care Provider] - Forms: evOLEDth Info Instructions
== END 2023-08-07 15:20 | disposition home or self-care (01) | DRG 560 ==
LOC: OB OUT 17:50 → OB 08-07 12:02
PROVIDERS: Admitting Provider Obstetrics & Gynecology; PCP Obstetrics & Gynecology; Visit Provider Obstetrics & Gynecology
DX: O99.02 Anemia complicating childbirth (principal); Z37.0 Single live birth; D64.9 Anemia, unspecified; O99.344 Other mental disorders complicating childbirth; F43.10 Post-traumatic stress disorder, unspecified; Z91.410 Personal history of adult physical and sexual abuse; Z3A.37 37 weeks gestation of pregnancy
CPT/HCPCS: 01967; 36415; 85018; 99213; A9270; J2371; J2795; J7120

== ENCOUNTER 2024-05-04 10:57 | Outpatient (CLI) | payer MEDICARE, SELFPAY ==
--- NOTE | 2024-05-04 11:00 | CRLHL7_ITS ---
For Patients: As a result of the Century Cures Act, medical imaging exams and procedure reports are released immediately into your electronic medical record. You may view this report before your referring provider. If you have questions, please contact your health care provider. INDICATION: First trimester scan, establish dates. COMPARISON: None. TECHNIQUE: Real-time zhang-scale imaging of the pelvis was performed. FINDINGS: Intrauterine gestational sac is present with a mean sac diameter of 1.95 cm, 6 weeks 6 days. Yolk sac is present measuring 1.7 millimeters. No pole. Right superior subchorionic hemorrhage measures 2.0 x 1.1 x 0.9 cm. Additional subchorionic hemorrhage noted at the left inferior aspect measuring 4.2 x 0.8 x 2.5 cm. Corpus luteal cyst left ovary. Unremarkable right ovary. No pelvic free fluid. IMPRESSION: Intrauterine gestational sac measuring 6 weeks 6 days. Yolk sac present. No pole. Two subchorionic hemorrhages. Dictated by Stalin Gleason MD @ 05/04/2024 12:05:05 PM (Electronically Signed)
== END 2024-05-04 10:58 | disposition home or self-care (01) ==
LOC: US 10:57
PROVIDERS: Visit Provider Registered Nurse
DX: Z34.91 Encounter for supervision of normal pregnancy, unspecified, first trimester (principal); O20.9 Hemorrhage in early pregnancy, unspecified; Z3A.01 Less than 8 weeks gestation of pregnancy
CPT/HCPCS: 76817; 84702

== ENCOUNTER 2024-05-06 17:12 | Outpatient (CLI) | payer MEDICARE, SELFPAY | END 2024-05-06 17:13 | disposition home or self-care (01) | PROVIDERS: Advanced Practice Midwife; Visit Provider Registered Nurse | DX: O36.80X0 Pregnancy with inconclusive fetal viability, not applicable or unspecified (principal) | CPT/HCPCS: 36415; 84702 ==

== ENCOUNTER 2024-09-18 10:14 | Outpatient (CLI) | payer MEDICARE, SELFPAY ==
--- NOTE | 2024-09-18 10:15 | CRLHL7_ITS ---
For Patients: As a result of the Century Cures Act, medical imaging exams and procedure reports are released immediately into your electronic medical record. You may view this report before your referring provider. If you have questions, please contact your health care provider. INDICATION: First trimester scan, establish dates. COMPARISON: None. TECHNIQUE: Real-time zhang-scale imaging of the pelvis was performed. FINDINGS: Sonographic imaging demonstrates a single living intrauterine gestation. The embryo demonstrates a regular cardiac rate measuring 179 beats per minute. The embryo`s crown-rump length measurement of 2.2 cm corresponds to a gestational age of 8 weeks 6 days with a sonographic due date of 04/24/2025. There is a normal-appearing yolk sac. There are no gross abnormalities noted within the embryo at this early state of development. The gestational sac has a normal appearance. There is no evidence of a perigestational hemorrhage. The amount of fluid within the sac appears appropriate for gestational age. The cervix is closed. The myometrium appears normal. The ovaries are of normal size. Corpus luteal cyst left ovary. There are no suspicious fluid collections noted in the cul-de-sac. IMPRESSION: Normal first trimester OB ultrasound exam. Gestational age calculated at 8 weeks 6 days with a sonographic due date of 04/24/2025. Dictated by Stalin Gleason MD @ 09/19/2024 7:00:01 AM (Electronically Signed)
== END 2024-09-18 10:15 | disposition home or self-care (01) ==
LOC: US 10:16
PROVIDERS: Visit Provider Physician Assistant
DX: Z34.91 Encounter for supervision of normal pregnancy, unspecified, first trimester (principal); Z3A.08 8 weeks gestation of pregnancy
CPT/HCPCS: 76817

== ENCOUNTER 2024-09-18 11:24 | Outpatient (CLI) | payer MEDICARE, SELFPAY ==
[2024-09-18 18:21] LABS: Chlamydia DNA Amplified* NOT DETECTED (No Detected); GC DNA Amplified* NOT DETECTED (No Detected)
== END 2024-09-18 11:25 | disposition home or self-care (01) ==
PROVIDERS: Visit Provider Physician Assistant
DX: Z34.91 Encounter for supervision of normal pregnancy, unspecified, first trimester (principal); Z3A.09 9 weeks gestation of pregnancy
CPT/HCPCS: 83021; 84443; 86592; 86703; 86704; 86706; 86762; 86787; 86803; 86850; 86900; 86901; 87086; 87340; 87491; 87591

== ENCOUNTER 2024-10-15 10:35 | Emergency (ER) | payer MEDICARE, SELFPAY ==
[2024-10-15 11:33] VITALS: BP 121/85; PULSE 88; RESP 16; TEMP 37.1; O2SAT 98; BMI 26.3
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
== END 2024-10-15 12:55 | disposition home or self-care (01) ==
LOC: ED 12:53
PROVIDERS: Emergency Provider Emergency Medicine
DX: S09.90XA Unspecified injury of head, initial encounter (principal); H10.9 Unspecified conjunctivitis; W01.198A Fall on same level from slipping, tripping and stumbling with subsequent striking against other object, initial encounter; Z33.1 Pregnant state, incidental; Z34.91 Encounter for supervision of normal pregnancy, unspecified, first trimester
CPT/HCPCS: 99283; 99284

== ENCOUNTER 2024-10-15 11:09 | Outpatient (CLI) | payer MEDICARE, SELFPAY ==
[2024-10-17 12:00] LABS: HPV Source Cervix; HPV, High Risk by TMA Detected
[2024-10-19 13:44] LABS: HPV Genotype 16 by TMA Not Detected; HPV Genotype 18/45 by TMA Not Detected; HPVG Source Cervix
[2024-10-19 14:10] LABS: Pap Test Reviewed by Path Done
== END 2024-10-15 11:10 | disposition home or self-care (01) ==
PROVIDERS: PCP Obstetrics & Gynecology; Visit Provider Obstetrics & Gynecology
DX: Z34.91 Encounter for supervision of normal pregnancy, unspecified, first trimester (principal)
CPT/HCPCS: 87624; 87625; 88141; 88142

== ENCOUNTER 2024-10-28 00:29 | Emergency (ER) | payer MEDICAID, SELFPAY ==
--- NOTE | 2024-10-28 | US_ITS ---
Patient: TREY CAMARENA Facility:?[facility] Patient ID:?[id number] Site Patient ID:?[id number]. Site :?1994 Study:?US-OB Pelvis OB LIMITED-10/28/2024 3:09:27 AM Ordering Physician:?DR. HARDY Final Report: Indication: Vaginal bleeding in Technique: Transabdominal pelvic ultrasound with evaluation of and maternal anatomy. Grayscale and color Doppler imaging utilized. Comparison: None Findings: Single live intrauterine gestation noted. heart rate measures 147 bpm. EGA 15 weeks 2 days. There is a 2.8 x 1.0 x 4.3 centimeter fluid collection at the edge of the placenta. Fetus is in transverse position. Cervix not visualized. Placenta along the anterior left wall. Impression: Single live intrauterine gestation with parameters as above. Probable perigestational hemorrhage measuring 4.3 centimeters along the placental edge. Dictated by Dejon Witt MD @ 10/28/2024 3:15:36 AM Signed by:?Dejon Witt MD @10/28/2024 3:15:36 AM (Electronic Signature)
--- OUTSIDE RECORDS SUMMARY | 2024-10-28 00:31 | XMS_ITS | Clinical Summary ---
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 Gender Identity Not on file Sexual Orientation Not on file Last Filed Vital Signs Vital Sign Reading Time Taken Comments Blood Pressure 115/77 05/04/2023 9:08 AM CDT Pulse 80 05/04/2023 9:08 AM CDT Temperature - - Respiratory Rate - - Oxygen Saturation 100% 05/04/2023 9:08 AM CDT Inhaled Oxygen Concentration - - Weight - - Height - - Body Mass Index - - Plan of Treatment Health Maintenance Due Date Last Done Comments ADVANCE CARE PLANNING 1994 ANNUAL REVIEW OF HM ORDERS 1994 YEARLY PREVENTIVE VISIT 1997 HIV SCREENING 2009 HPV IMMUNIZATION (3 - 2-dose series) 09/02/2009 06/10/2009, 02/12/2009 HEPATITIS C SCREENING 2012 PAP 2015 PHQ-2 (once per calendar year) 2023 COVID-19 Vaccine ( - 2023- season) 2024 INFLUENZA VACCINE (#1) 2024 DTAP/TDAP/TD IMMUNIZATION (8 - Td or Tdap) 05/30/2027 05/30/2017, 03/06/2015, 04/25/2006, Additional history exists RSV VACCINE (1 - 1-dose 75+ series) 2069 HEPATITIS B IMMUNIZATION Completed 999, 05/22/1999, 03/13/1999 MENINGITIS IMMUNIZATION Aged Out 03/06/20 15, 03/06/2015, 06/10/2009 No longer eligible based on patient's age to complete this topic Pneumococcal Vaccine: Pediatrics (0 to 5 Years) and At-Risk Patients (6 to 49 Years) Aged Out No longer eligible based on patient's age to complete this topic RSV MONOCLONAL ANTIBODY Aged Out No l onger eligible based on patient's age to complete this topic Insurance [employer] Care Teams Formula Weigher Relationship Specialty Start Date End Date No Ref-Primary, Physician PCP - General 04/20/23 Lulu Maguire MD [address] [place] [id number] Assigned OBGYN Provider 05/14/23
--- OUTSIDE RECORDS SUMMARY | 2024-10-28 00:31 | XMS_ITS | Referral Summary ---
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 Care Teams Matrix Plater Relationship Specialty Start Date End Date No Ref-Primary, Physician PCP - General 04/20/23 Lulu Maguire MD [address] [facility] [address] [place], [place] [id number] Assigned OBGYN Provider 05/14/23
--- OUTSIDE RECORDS SUMMARY | 2024-10-28 00:31 | XMS_ITS | Continuity of Care Document ---
Author Name [facility]IN User [id number] llow[facility] Address Unknown Organization Unknown Address Unknown Procedures FILTER APPLIED:Only known Procedures with Onset Date within the last 5 years Procedure Date Procedure Provider Additiona l Information Status ROUTINE VENIPUNCTURE (50824) Completed HEMOGLOBIN (83072) Compl eted NON-STRESS TEST (71804) Completed NEURAXL LBR ANES VAG DLVR (29628) Completed OFFICE O/P EST LOW 20 MIN (66737) Completed BIOPHYS PROFIL W/O NST (68940) Completed NON-STRESS TEST (10723) Completed OFFICE O/P EST LOW 20 MIN (22674) Completed CULTURE SCREEN ONLY (46403) Completed STREP B DNA AMP PROBE (09924) Completed EVAL AMNIOTIC FLUID PROTEIN (77895) Completed OFFICE O/P EST LOW 20 MIN (92506) Completed NON-STRESS TEST (01471) Completed MICROSCOPIC EXAM OF URINE (14974) Completed OFFICE O/P EST LOW 20 MIN (65806) Completed URINE CULTURE/COLONY COUNT (94239) Completed NON-STRESS TEST (25112) Completed URINALYSIS AUTO W/O SCOPE (45857) Completed OFFICE O/P EST LOW 20 MIN (50933) Completed ASSAY OF UREA NITROGEN (57263) Completed ALANINE AMINO (ALT) (SGPT) (50569) Completed TRANSFERASE (AST) (SGOT) (09697) Completed ASSAY OF CREATININE (01270) Completed NON-STRESS TEST (68278) Completed ROUTINE VENIPUNCTURE (16473) Completed COMPLETE CBC AUTOMATED (46295) Completed ASSAY OF URINE CREATININE (75801) Completed ASSAY OF PROTEIN URINE (43466) Completed ROUTINE VENIPUNCTURE (33391) Completed EMERGENCY DEPT VISIT LOW MDM (01304) Completed HEMOGLOBIN (72802) Compl eted CHORIONIC GONADOTROPIN TEST (46151) Completed MICROSCOPIC EXAM OF URINE (77316) Completed COMPLETE CBC W/AUTO DIFF WBC (72037) Completed PROTHROMBIN TIME (91937) Completed THROMBOPLASTIN TIME PARTIAL (09731) Completed EMERGENCY DEPT VISIT MOD MDM (19033) Completed URINALYSIS AUTO W/O SCOPE (91573) Completed METABOLIC PANEL TOTAL CA (79185) Completed OB US LIMITED FETUS(S) (54602) Completed ROUTINE VENIPUNCTURE (69225) Completed EMERGENCY DEPT VISIT LOW MDM (03860) Completed EMERGENCY DEPT VISIT LOW MDM (34118) Completed BLOOD TYPING SEROLOGIC RH(D) (84295) Completed BLOOD TYPING SEROLOGIC ABO (90567) Completed RBC ANTIBODY SCREEN (96608) Completed COMPLETE CBC W/AUTO DIFF WBC (37643) Completed TRANSVAGINAL US OBSTETRIC (97647) Completed ROUTINE VENIPUNCTURE (03375) Completed EMERGENCY DEPT VISIT MOD MDM (40604) Completed Encounters FILTER APPLIED:Only known Encounters with Admission Date within the last 5 years Encounter Location Admission Discharge Billing Code Security Police [facility] Outpatient [facility]ish[facility] Out[facility] Inpatient [id number] Niru bryan Wheeler Out[facility]
--- OUTSIDE RECORDS SUMMARY | 2024-10-28 00:31 | XMS_ITS | Clinical Summary ---
Author Organization [facility] Address [place], [place] [address] Care Team Providers Care E Commerce Architect Name Role Phone Clinic, No Pcp Or Primary Care Provider Unavaila ble Allergies No known active allergies Medications naproxen (NAPROSYN) 500 mg tabletIndicatio ns:Dysmenorrhea Take 1 tablet by mouth 2 times daily with meals. Take BID for dysmenorrhea each 30 tablet 0 5 Active lamoTRIgine (LAMICTAL) 25 mg tabletIndicatio ns:Depression with anxiety Take 1 tablet twice daily 60 tablet 1 6 Active LORazepam (ATIVAN) 0.5 mg tabIndications: Depression with anxiety Take 1 tablet by mouth at bedtime if needed. 25 tablet 0 6 Active DULoxetine (CYMBALTA) 30 mg Delayed-release capsuleIndicati ons:Depression with anxiety TAKE ONE CAPSULE BY MOUTH ONE TIME DAILY 30 capsule 0 6 Active Active Problems Problem Noted Date Diagnosed Date Encounter for long-term (current) use of medicat ions 09/09/2015 Overview (09/09/2015): Controlled substance agreement for Lorazepam on file and signed 09/09/2015. Designated pharmacy: [facility] [phone] Prescribing physician:Sasha Moffett CNP. Diagnosis: Depression with Anxiety. Autumn Felix .................... 09/09/2015 10:08 AM Major depressive disorder, r ecurrent episode, severe, without mention of psychotic behavior 06/18/2015 Depression with anxiety 02/17/2015 Anxiety state, unspecified 09/15/2012 Resolved Problems Problem Noted Date Diagnosed Date Resolved Date Dysmenorrhea 09/03/2010 05/09/2017 Encounters Date Type Department Care Team Description 09/18/2024 Orders Only [facility] [address] [place] [address] Jessica, Marizol Gupta PA-C 1 scan: (1-Ord) ZIO REPORT from Last 3 Months Immunizations Name Administration Dates Next Due DTaP 03/13/1999, 5,1994,09/15,1994 Hepatitis B (Peds) 10/08/1999,05/22/1999, 999 Hib Conjugate, Unspecified 07/27/1995,,1994,07/28 Human Papilloma Virus Vaccine 06/10/2009, 009 Inactivated Polio Vaccine 03/13/1999,08/1995,1994,07/28 MENINGOCOCCAL VACCINE 2 VIAL 2MO-55YO (MENVEO) 03/06/2015 MMR 03/13/1999,07/27/1995 Meningococcal Vaccine 06/10/2009 Td (Age >=7 Years) 04/25/2006 Tdap 03/06/2015 Family History Medical History Relation Name Comments Alcoholism Brother 1 Arcadio Alcoholism Brother 2 Evelio Allergies Brother 2 Evelio Dogs, cats, sea food Psychiatric illness Brother 2 Evelio Depressi on Alcohol/Drug Father Alcohol Hyperlipidemia Father Hypertension Father Psychiatric illness Father Depressi on Diabetes Maternal Grandfather Allergies Mother Dogs, cats, sea food, PCN Diabetes Mother Gestational Thyroid Disease Mother Thyroid nodu les Cancer Paternal Grandfather Lung Heart Disease Paternal Grandmother NC Relation Name Status Comments Brother 1 Arcadio Brother 2 Evelio Father Maternal Grandfather Mother Paternal Grandfather Paternal Grandmother Social History Tobacco Use Types Packs/Day Years Used Date Smoking Tobacco: Never Smokeless Tobacco: Never Tobacco Cessation:Counseling Given: Yes Alcohol Use Standard Drinks/Week Comments No 0 (1 standard drink = 0.6 oz pur e alcohol) Comments No Sex and Gender Information Value Date Recorded Sex Assigned at Not on file Legal Sex Female 6:30 PM ORACLE BUSINESS 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 DEVELOPER Gender Identity Not on file Sexual Orientation Not on file 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 Job End Date Not on file Not on 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 Not on file Not on file Obstetrics History Para Term AB IAB SAB Ectopic Multiple Livin g Live Births 2 1 1 0 0 0 0 0 0 0 Date Outcome GA Total Labor Labor/2nd/3rd Weight Sex Type Anes PTL Nay A1 A5 Name Clin 2017 Term Last Filed Vital Signs Vital Sign Reading Time Taken Comments Blood Pressure 108/66 09/08/2015 10:42 AM ORACLE BUSINESS 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 DEVELOPER Pulse 63 09/08/2015 10:42 AM ORACLE BUSINESS 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 DEVELOPER Temperature 36.9 C (98.4 F) 09/08/2015 10:42 AM ORACLE BUSINESS 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 DEVELOPER Respiratory Rate 16 09/02/2015 3:14 PM ORACLE BUSINESS 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 DEVELOPER Oxygen Saturation 99% 09/08/2015 10:42 AM ORACLE BUSINESS 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 DEVELOPER Inhaled Oxygen Concentration - - Weight 68.3 kg (150 lb 8 oz) 09/08/2015 10:42 AM ORACLE BUSINESS 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 DEVELOPER Height 163.2 cm (5' 4.25) 09/02/2015 3:14 PM CS T Body Mass Index 25.63 09/02/2015 3:14 PM ORACLE BUSINESS 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 DEVELOPER Plan of Treatment Health Maintenance Due Date Last Done Comments HIV for age 15-65 2009 BMI (ht and wt on same day) for age 18+ 2012 Hepatitis C screening for age 18-79 2012 Depression screening for age 12+ 11/07/2016 11/07/2015 COVID-19 vaccine series ( season) 2024 Influenza for age 9-49 06/17/2024 Tetanus booster 03/06/2025 03/06/2015, 04/25/2006 Pap test for age 21-65 09/28/2026 , 09/28/2023, 12/28/2022, Additional history exists Tdap Completed 03/06/2015 Pneumococcal series for age 6-49 Aged Out No longer eligible based on patient's age to complete this topic Procedures Procedure Name Priority Date/Time Associated Diagnosis Comments EXTENDED HOLTER Routine 09/26/2024 Tachycardia, unspecified HPV HIGH RISK Routine 09/28/2023 12:00 PM ORACLE BUSINESS 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 DEVELOPER from Last 3 Months or Most Recently Relevant to Health Maintenance Results * EXTENDED HOLTER (09/26/2024) Marizol Candy Lopez PA-C CARDIAC SERVICES ORD Final Result * (ABNORMAL) HPV HIGH RISK (09/28/2023 12:00 PM ORACLE BUSINESS 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 DEVELOPER) TYPE 16 Negative Negative 10/03/2023 11:31 AM ORACLE BUSINESS 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 DEVELOPER [facility] TYPE 18 Negative Negative 10/03/2023 11:31 AM ORACLE BUSINESS 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 DEVELOPER [facility] OTHER HIGH RISK TYPES Positive(A) Negative 10/03/2023 11:31 AM ORACLE BUSINESS 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 DEVELOPER [facility] Other (Cervical) 09/28/2023 12:00 PM ORACLE BUSINESS 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 DEVELOPER 09/29/2023 12:46 PM ORACLE BUSINESS 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 DEVELOPER Narrative [facility] - 10/03/2023 11:31 AM ORACLE BUSINESS 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 DEVELOPER Specimen is positive for the DNA of any one of, or combination of, the following high risk HPV types: 31, 33, 35, 39, 45, 51, 52, 56, 58, 59, 66, 68. HPV types 16 and 18 DNA were undetectable or below the pre-set threshold. Methodology: Jennifer Bella 4800 HPV Test Chuyita Maciel MD MICROBIOLOGY Final Res ult [facility] [address] [place] [address], [place] from Last 3 Months or Most Recently Relevant to Health [place] [id number] Care Teams E Commerce Architect Relationship Specialty Start Date End Date Clinic, No Pcp Or . PCP - General 01/15/16
[2024-10-28 00:52] LABS: Appearance Urine Cloudy (Clear); Bilirubin Urine Negative (Negative); Color Urine Yellow (Yellow); Glucose Urine Negative (Negative)
[2024-10-28 00:53] LABS: Blood Urine 2+ (Negative); Ketones Urine Negative (Negative); Leukocyte Esterase Urine Negative (Negative); Nitrite Urine Negative (Negative); Protein Urine Negative (Negative); Specific Gravity Urine 1.015 (1.000-1.030); Urobilinogen Urine 0.2 (0.2-1.0)
[2024-10-28 00:54] VITALS: BP 132/85; PULSE 95; RESP 16; TEMP 36.8; O2SAT 97; BMI 25.8
[2024-10-28 00:56] LABS: Amorphous Sediment Urine Moderate; RBC Urine 0-2 (0-2); WBC Urine 0-2 (0-5)
[2024-10-28 06:23] LABS: Hemoglobin* 12.7 gm/dL (12.0-16.0)
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
== END 2024-10-28 04:00 | disposition home or self-care (01) ==
LOC: ED 03:59
PROVIDERS: Emergency Provider Family Medicine
DX: O20.8 Other hemorrhage in early pregnancy (principal); Z3A.14 14 weeks gestation of pregnancy
CPT/HCPCS: 36415; 76815; 81001; 85018; 86900; 86901; 99284

== ENCOUNTER 2024-11-05 11:30 | Outpatient (CLI) | payer MEDICAID, SELFPAY ==
--- NOTE | 2024-11-05 11:30 | CRLHL7_ITS ---
For Patients: As a result of the Century Cures Act, medical imaging exams and procedure reports are released immediately into your electronic medical record. You may view this report before your referring provider. If you have questions, please contact your health care provider. INDICATION: Cramping. History of labor. TECHNIQUE: Limited transabdominal two-dimensional zhang-scale ultrasound examination. COMPARISON: 09/18/2024 FINDINGS: There is a living fetus in transverse lie with gestational age of 14 weeks 5 days by LMP and 15 weeks 2 days by today`s measurements. EDC based on LMP is 04/23/2025. BPD: 3.1 cm, 15 weeks 5 days Head circumference: 11.0 cm, 15 weeks 2 days Abdominal circumference: 9.0 cm, 15 weeks 1 day Femur length: 1.6 cm, 14 weeks 5 days HC/AC: 1.22 The weight is estimated at 113 grams, the 59th percentile. The heart rate is measured at 147 beats per minute and the rhythm appears regular. The amniotic fluid volume is within normal limits. The placenta is anterior/left and superior to the cervical os. There is no evidence of previa. A 4.3 x 2.8 x 1.0 cm subchorionic hemorrhage is noted at edge of the placenta on the left. IMPRESSION: 1. Living fetus in transverse lie with gestational age of 14 weeks 5 days by LMP and 15 weeks 2 days by today`s measurements. EDC based on LMP is 04/23/2025. 2. 4.3 x 2.8 x 1.0 cm subchorionic hemorrhage at placental edge on the left. Dictated by Ap Agudelo MD @ 11/06/2024 4:40:35 AM (Electronically Signed)
== END 2024-11-05 11:31 | disposition home or self-care (01) ==
LOC: US 11:30
PROVIDERS: Visit Provider Obstetrics & Gynecology
DX: O09.212 Supervision of pregnancy with history of pre-term labor, second trimester (principal); Z3A.14 14 weeks gestation of pregnancy
CPT/HCPCS: 76815; 76817

== ENCOUNTER 2024-11-13 16:48 | Emergency (ER) | payer MEDICAID, SELFPAY ==
[2024-11-13 16:52] VITALS: BP 142/87; PULSE 112; RESP 18; TEMP 37.2; O2SAT 98; BMI 26.6
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
[2024-11-13 17:56] LABS: Basophils Percent Auto 0.1 % (0.0-3.0); Eosinophils Percent Auto 1.3 % (0.0-7.0); Hemoglobin* 13.4 gm/dL (12.0-16.0); Immature Granulocytes Pct Auto 0.1 %; Lymphocytes Percent Auto 17.7 % (20-44); Mean Corpuscular HGB Conc 35 gm/dL (32-36); Mean Corpuscular Hemoglobin 31 pg (26-34); Mean Corpuscular Volume 88 fL (80-100); Monocytes Percent Auto 6.4 % (0.0-11.0); Neutrophils Percent Auto 74.4 % (42.0-72.0); Platelet Count* 228 K/uL (140-440); RDW Coefficient of Variation % 12.7 % (11.5-15.5); Red Blood Count* 4.31 m/uL (4.00-5.20); White Blood Count* 13.52 K/uL (4.50-11.00)
[2024-11-13 17:59] LABS: Slide Review Reflex No
[2024-11-13 21:00] LABS: INR 0.95 (0.91-1.10); Prothrombin Time 13.2 Seconds
[2024-11-13 21:01] LABS: Partial Thromboplastin Time* 25 Seconds (23-33)
[2024-11-13 21:58] LABS: Fibrinogen* 448 mg/dL (200-450)
--- OUTSIDE RECORDS SUMMARY | 2024-11-14 14:45 | XMS_ITS | Referral Summary ---
Author Organization [facility] Address [address] [place] [id number] Care Team Providers Care Insurance Appraiser Name Role Phone No Ref-Primary, Physician Primary Care Provider Social History Tobacco Use Types Packs/Day Years Used Date Smoking Tobacco: Never Assessed Adolescent Education Answer Date Record ed Getting School Help Needed Not on file 07/08 Comments No Sex and Gender Information Value Date Recorded Sex Assigned at Not on file Legal Sex Female 12:40 PM [employer] Gender Identity Not on file Sexual Orientation [...] Plan of Treatment Not on file Insurance [employer] Care Teams Insurance Appraiser Relationship Specialty Start Date End Date No Ref-Primary, Physician PCP - General 04/20/23
--- OUTSIDE RECORDS SUMMARY | 2024-11-14 14:45 | XMS_ITS | Clinical Summary ---
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
== END 2024-11-13 21:22 | disposition home or self-care (01) ==
PROVIDERS: Emergency Provider Family Medicine
DX: O20.0 Threatened abortion (principal); Z3A.15 15 weeks gestation of pregnancy
CPT/HCPCS: 36415; 76815; 76817; 85025; 85384; 85610; 85730; 99284

== ENCOUNTER 2024-11-15 11:59 | Outpatient (CLI) | payer MEDICAID, SELFPAY | END 2024-11-15 12:00 | disposition home or self-care (01) | PROVIDERS: Visit Provider Obstetrics & Gynecology | DX: O20.0 Threatened abortion (principal); Z3A.17 17 weeks gestation of pregnancy | CPT/HCPCS: 85384; 85610 ==

== ENCOUNTER 2024-11-15 18:25 | Emergency (ER) | payer MEDICAID, SELFPAY ==
[2024-11-15] VITALS (9 sets, daily range): BP systolic 109–148; BP diastolic 74–104; PULSE 86–112; RESP 18–20; TEMP 36.7–37; O2SAT 97–100; BMI 26.1
--- OUTSIDE RECORDS SUMMARY | 2024-11-15 18:28 | XMS_ITS | Referral Summary ---
Author Organization [place] Address [address] [place] [address] Care Team Providers Care Striper Name Role Phone No Ref-Primary, Physician Primary Care Provider Social History Tobacco Use Types Packs/Day Years Used Date Smoking Tobacco: Never Assessed Adolescent Education Answer Date Record ed Getting School Help Needed Not on file 07/08 Comments No Sex and Gender Information Value Date Recorded Sex Assigned at Not on file Legal Sex Female 12:40 PM TRANSITIONAL CARE MANAGER Gender Identity Not on file Sexual [...] Plan of Treatment Not on file Insurance [facility] [employer] Care Teams Striper Relationship Specialty Start Date End Date No Ref-Primary, Physician PCP - General 04/20/23
--- OUTSIDE RECORDS SUMMARY | 2024-11-15 18:28 | XMS_ITS | Clinical Summary ---
Author Organization [facility] Address [place], [place] [address] Care Team Providers Care Ore Dressing Engineer Name Role Phone Clinic, No Pcp Or [...] on file and signed 09/09/2015. Designated pharmacy: [facility] [phone] Prescribing physician:Sasha Moffett CNP. Diagnosis: Depression with Anxiety. Autumn Felix .................... 09/09/2015 10:08 AM Major depressive disorder, r ecurrent episode, severe, without mention of psychotic behavior 06/18/2015 Depression with anxiety 02/17/2015 Anxiety state, unspecified 09/15/2012 Resolved Problems Problem Noted Date Diagnosed Date Resolved Date Dysmenorrhea 09/03/2010 05/09/2017 Encounters Date Type Department Care Team Description 09/18/2024 Orders Only [facility] [address] [place] [address] Jessica, Marizol Gupta PA-C 1 scan: (1-Ord) [...] Paternal Grandfather Lung Heart Disease Paternal Grandmother DC Relation Name Status Comments Brother 1 Arcadio [...] on file Legal Sex Female 6:30 PM NUMERICAL CONTROL TOOL PROGRAMMER Gender Identity Not on file Sexual Orientation [...] Comments Blood Pressure 108/66 09/08/2015 10:42 AM NUMERICAL CONTROL TOOL PROGRAMMER Pulse 63 09/08/2015 10:42 AM NUMERICAL CONTROL TOOL PROGRAMMER Temperature 36.9 C (98.4 F) 09/08/2015 10:42 AM NUMERICAL CONTROL TOOL PROGRAMMER Respiratory Rate 16 09/02/2015 3:14 PM NUMERICAL CONTROL TOOL PROGRAMMER Oxygen Saturation 99% 09/08/2015 10:42 AM NUMERICAL CONTROL TOOL PROGRAMMER Inhaled Oxygen Concentration - - Weight 68.3 kg (150 lb 8 oz) 09/08/2015 10:42 AM NUMERICAL CONTROL TOOL PROGRAMMER Height 163.2 cm (5' 4.25) 09/02/2015 3:14 PM CS T Body Mass Index 25.63 09/02/2015 3:14 PM NUMERICAL CONTROL TOOL PROGRAMMER Plan of Treatment Health Maintenance Due Date [...] HPV HIGH RISK Routine 09/28/2023 12:00 PM NUMERICAL CONTROL TOOL PROGRAMMER from Last 3 Months or Most Recently Relevant to Health Maintenance Results * EXTENDED HOLTER (09/26/2024) Marizol Candy Lopez PA-C CARDIAC SERVICES ORD Final Result * (ABNORMAL) HPV HIGH RISK (09/28/2023 12:00 PM NUMERICAL CONTROL TOOL PROGRAMMER) TYPE 16 Negative Negative 10/03/2023 11:31 AM NUMERICAL CONTROL TOOL PROGRAMMER [facility] TYPE 18 Negative Negative 10/03/2023 11:31 AM NUMERICAL CONTROL TOOL PROGRAMMER [facility] OTHER HIGH RISK TYPES Positive(A) Negative 10/03/2023 11:31 AM NUMERICAL CONTROL TOOL PROGRAMMER [facility] Other (Cervical) 09/28/2023 12:00 PM NUMERICAL CONTROL TOOL PROGRAMMER 09/29/2023 12:46 PM NUMERICAL CONTROL TOOL PROGRAMMER Narrative [facility] - 10/03/2023 11:31 AM NUMERICAL CONTROL TOOL PROGRAMMER Specimen is positive for the DNA of any one of, or combination of, the following high risk HPV types: 31, 33, 35, 39, 45, 51, 52, 56, 58, 59, 66, 68. HPV types 16 and 18 DNA were undetectable or below the pre-set threshold. Methodology: Jennifer Bella 4800 HPV Test Chuyita Maciel MD MICROBIOLOGY Final Res ult [facility] [address] [place] [address], [place] from Last 3 Months or Most Recently Relevant to [id number] Care Teams Ore Dressing Engineer Relationship Specialty Start Date End Date Clinic, No Pcp Or . PCP - General 01/15/16
--- OUTSIDE RECORDS SUMMARY | 2024-11-15 18:28 | XMS_ITS | Clinical Summary ---
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
[2024-11-15 19:41] LABS: Basophils Percent Auto 0.1 % (0.0-3.0); Eosinophils Percent Auto 1.4 % (0.0-7.0); Hematocrit 43.8 % (33.0-51.0); Hemoglobin* 15.2 gm/dL (12.0-16.0); Immature Granulocytes Pct Auto 0.2 %; Mean Corpuscular HGB Conc 35 gm/dL (32-36); Mean Corpuscular Hemoglobin 31 pg (26-34); Mean Corpuscular Volume 89 fL (80-100); Monocytes Percent Auto 6.6 % (0.0-11.0); Neutrophils Percent Auto 72.7 % (42.0-72.0); Platelet Count* 292 K/uL (140-440); RDW Coefficient of Variation % 12.6 % (11.5-15.5); Red Blood Count 4.91 m/uL (4.00-5.20)
[2024-11-15 19:46] LABS: Chloride* 103 mmol/L (96-114); Potassium* 3.8 mmol/L (3.6-5.1); Slide Review Reflex No; Sodium* 136 mmol/L (135-149)
[2024-11-15 19:49] LABS: Anion Gap 15 mEq/L (7-15); Blood Urea Nitrogen* 8 mg/dL (5-24); Calcium* 9.2 mg/dL (8.4-10.6); Carbon Dioxide* 18 mmol/L (20-32); Creatinine* 0.4 mg/dL (0.5-1.5); Est. Creatinine Clearance* 192.52; Estimated Glomerular Filt Rate 136 ml/min; Glucose* 96 mg/dL (60-115)
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
[2024-11-15] MEDS: 0.9 % SODIUM CHLORIDE 1000 ml 1,000 ML IV (20:25)
[2024-11-15 20:35] LABS: Fibrinogen* 538 mg/dL (200-450)
[2024-11-15 20:36] LABS: INR 0.95 (0.91-1.10); Partial Thromboplastin Time* 25 Seconds (23-33); Prothrombin Time 13.2 Seconds
--- OUTSIDE RECORDS SUMMARY | 2024-11-15 20:51 | XMS_ITS | Referral Summary ---
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
--- OUTSIDE RECORDS SUMMARY | 2024-11-15 20:51 | XMS_ITS | Clinical Summary ---
Author Organization [facility] Address [place], [place] [address] Care Team Providers Care Tonal Regulator Name Role Phone Clinic, No Pcp Or [...] on file and signed 09/09/2015. Designated pharmacy: [facility] [phone] Prescribing physician:Sasha Moffett CNP. Diagnosis: Depression with Anxiety. Autumn Felix .................... 09/09/2015 10:08 AM Major depressive disorder, r ecurrent episode, severe, without mention of psychotic behavior 06/18/2015 Depression with anxiety 02/17/2015 Anxiety state, unspecified 09/15/2012 Resolved Problems Problem Noted Date Diagnosed Date Resolved Date Dysmenorrhea 09/03/2010 05/09/2017 Encounters Date Type Department Care Team Description 09/18/2024 Orders Only [facility] [address] [place] [address] Jessica, Marizol Gupta PA-C 1 scan: (1-Ord) [...] Paternal Grandfather Lung Heart Disease Paternal Grandmother PA Relation Name Status Comments Brother 1 Arcadio [...] on file Legal Sex Female 6:30 PM SECRETARY RECEPTIONIST Gender Identity Not on file Sexual Orientation [...] Comments Blood Pressure 108/66 09/08/2015 10:42 AM SECRETARY RECEPTIONIST Pulse 63 09/08/2015 10:42 AM SECRETARY RECEPTIONIST Temperature 36.9 C (98.4 F) 09/08/2015 10:42 AM SECRETARY RECEPTIONIST Respiratory Rate 16 09/02/2015 3:14 PM SECRETARY RECEPTIONIST Oxygen Saturation 99% 09/08/2015 10:42 AM SECRETARY RECEPTIONIST Inhaled Oxygen Concentration - - Weight 68.3 kg (150 lb 8 oz) 09/08/2015 10:42 AM SECRETARY RECEPTIONIST Height 163.2 cm (5' 4.25) 09/02/2015 3:14 PM CS T Body Mass Index 25.63 09/02/2015 3:14 PM SECRETARY RECEPTIONIST Plan of Treatment Health Maintenance Due Date [...] HPV HIGH RISK Routine 09/28/2023 12:00 PM SECRETARY RECEPTIONIST from Last 3 Months or Most Recently Relevant to Health Maintenance Results * EXTENDED HOLTER (09/26/2024) Marizol Candy Lopez PA-C CARDIAC SERVICES ORD Final Result * (ABNORMAL) HPV HIGH RISK (09/28/2023 12:00 PM SECRETARY RECEPTIONIST) TYPE 16 Negative Negative 10/03/2023 11:31 AM SECRETARY RECEPTIONIST [facility] TYPE 18 Negative Negative 10/03/2023 11:31 AM SECRETARY RECEPTIONIST [facility] OTHER HIGH RISK TYPES Positive(A) Negative 10/03/2023 11:31 AM SECRETARY RECEPTIONIST [facility] Other (Cervical) 09/28/2023 12:00 PM SECRETARY RECEPTIONIST 09/29/2023 12:46 PM SECRETARY RECEPTIONIST Narrative [facility] - 10/03/2023 11:31 AM SECRETARY RECEPTIONIST Specimen is positive for the DNA of any one of, or combination of, the following high risk HPV types: 31, 33, 35, 39, 45, 51, 52, 56, 58, 59, 66, 68. HPV types 16 and 18 DNA were undetectable or below the pre-set threshold. Methodology: Jennifer Bella 4800 HPV Test Chuyita Maciel MD MICROBIOLOGY Final Res ult [facility] [address] [place] [address], [place] from Last 3 Months or Most Recently Relevant to [id number] Care Teams Tonal Regulator Relationship Specialty Start Date End Date Clinic, No Pcp Or . PCP - General 01/15/16
--- OUTSIDE RECORDS SUMMARY | 2024-11-15 20:51 | XMS_ITS | Clinical Summary ---
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
[2024-11-15 21:46] LABS: Hemoglobin* 12.3 gm/dL (12.0-16.0)
== END 2024-11-15 22:30 | disposition short-term general hospital (02) ==
PROVIDERS: Emergency Provider Family Medicine
DX: O20.0 Threatened abortion (principal); Z3A.17 17 weeks gestation of pregnancy
CPT/HCPCS: 36415; 76815; 76817; 80048; 84702; 85018; 85025; 85384; 85610; 85730; 86850; 86900; 86901; 94761; 99284; 99285; J7030

== ENCOUNTER 2024-11-15 22:09 | Outpatient (CLI) | payer MEDICAID, SELFPAY | END 2024-11-15 22:10 | disposition home or self-care (01) | LOC: AMB 11-25 20:28 | PROVIDERS: Visit Provider Family Medicine | DX: O46.92 Antepartum hemorrhage, unspecified, second trimester (principal); Z3A.17 17 weeks gestation of pregnancy | CPT/HCPCS: A0425; A0429 ==

== ENCOUNTER 2025-10-07 00:55 | Emergency (ER) | payer MEDICAID, SELFPAY ==
--- OUTSIDE RECORDS SUMMARY | 2025-10-07 00:57 | XMS_ITS | Clinical Summary ---
Author Organization [facility] Address [address] 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 Primary Care Provider No Ref-Primary, Physician Unavailable [phone] Isabelle Zhang MD Unavailable [phone] Liang Stein MD Unavailable [phone] Allergies No known active allergies Medications MedicationSigDispense QuantityRefillsLast FilledStart DateEnd DateStatus MV-Min-Fe Fum-FA-DHA ( 1 PO) Take 1 tablet by mouth daily.Active polyethylene glycol (MIRALAX) 17 GM/Dose powder Indications:S/P sectionTake 17 g by mouth daily. 510 g 5Active Additional Information Patient not taking.Reported on 04/01/2025 acetaminophen (TYLENOL) 325 MG tablet Indications:S/P sectionTake 2 tablets (650 mg) by mouth every 6 hours. 60 tablet 5Active ibuprofen (ADVIL/MOTRIN) 800 MG tablet Indications:S/P sectionTake 1 tablet (800 mg) by mouth every 6 hours. 30 tablet 5Active senna-docusate (SENOKOT-S/PERICOLACE) 8.6-50 MG tablet Indications:S/P sectionTake 1 tablet by mouth 2 times daily as needed for constipation. 30 tablet 5Active Additional Information Patient not taking.Reported on 04/01/2025 Active Problems Patient Care Coordination No te Formatting of this note is d ifferent from the original. Lisa Montague MR#:[id number] Partner's name: [facility] Care Plan: For details of imaging, genetic testing and consultations, please see the maternal medical record: Lisa Montague MR#:[id number] NEEDS referral- called [facility] 01/25/25 to request PROBLEM LIST & CARE PLAN Hx Leep Hx PPROM/PTD at 36wks RYAN w/ bleeding (Ante 11/16-11/18 and 01/07-01/08 for vaginal bleeding) Care Plan (Previously with [facility]. MADINA to [facility] 12/14 until about 35ish wks then to return to [facility]) Ob visits: Q4wks Ultrasounds: TV weekly until 23w6d, Growth Q4wks surveillance: Genetic testing : maternal: Labs: Blood Type: A positive Ab Screen: Negative PAP: HBS Ag: Negative HBS Ab: Negative Hep C Ab: Negative RPR: NR (01/07) HIV: Negative HgbA1c: 5.9 Rubella: Immune Varicella: Negative GCT: 133 3hr GTT: Plan to do week of 03/04 GBS: neg (01/07) Contraception: feeding plans: Vaccines: Tdap: 02/04/25 Flu: Declined COVID: Declined RSV: RhoGAM: Not indicated Consultations: Anesthesia: Social Work: NICU: Follow up with other Care Teams: DELIVERY PLAN: 1) Scheduled delivery date: 2) Planned mode of delivery/details of delivery: 3) Gestational age at delivery: 4) Betamethasone: 5) Notifications in labor: 6) Specimen collection in labor / at delivery: MATERNAL CARE TEAM: Patient Care Team Relationship Specialty Notifications [facility] PCP - General 11/16/[address] [place], [place] [id number] No Ref-Primary, Physician 11/16/24 Merged REFERRING PROVIDER: 1) Primary OB Provider: Name: Ph: Fax: DEMOGRAPHICS: Patient contact info: isaac [place] [phone] (home) Telephone Information: ProblemNoted DateDiagnosed DatePreterm premature rupture of bykhldmbn25/01/2025 Vaginal bleeding during wvaoidhba98 weeks gestation of 01/08/2025History of delivery, currently in second trimester 01/08/2025Vaginal /25/2025Encounter for triage in patient 01/07/20256622Cpjehyrh03/24/2025Subchorionic hematoma in second trimester, single or unspecified fetus11/27/2024Vaginal bleeding in , second trimester 11/16/20249318Sdixsbstbz13/20/2013 Resolved Problems ProblemNoted DateDiagnosed DateResolved DateFoot joint pain Immunizations ImmunizationAdministration DatesNext DueHIB, Olkuzwsjynk36/11/1995,1994, 1994,1994HPV Rkdqhzjwbeie27/25/2009,02/12/2009Hepatitis B, Peds (Engerix-B/Recombivax HB)10/08/1999,05/22/1999,03/13/1999Historical DTP/aP 03/13/1999,07/27/1995,1994,1994,1994MENINGOCOCCAL, HISTORIC, UNKOWN ZYTYCGERMT94/25/2009MMR (MMRII)07/05/2017,03/13/1999,07/27/1995 Meningococcal ACWY (Menactra??)06/10/2009Meningococcal ACWY (Menveo??)03/06/2015 OPV, trivalent, live03/13/1999Polio, Dnvtaspqczh48/11/1995,1994,1994 TDAP (Adacel,Boostrix)02/04/2025,06/28/2023,05/30/2017,03/06/2015Td (Adult), Yugsgxza75/07/2006 Social History Tobacco UseTypesPacks/DayYears UsedDateSmoking Tobacco: NeverSmokeless Tobacco: Never Tobacco Cessation:Counseling Given: Not Answered Alcohol UseStandard Drinks/WeekCommentsNot Currently0 (1 standard drink = 0.6 oz pure alcohol)PHQ-2AnswerDate RecordedPHQ-2 Fcczw894Edinburgh Depression ScaleAnswerDate RecordedEdinburgh Depression Scale Total0 04/01/2025The thought of harming myself has occurred to me.Never04/01/2025Food InsecurityAnswerDate RecordedWithin the past 12 months, did you worry that your food would run out before you got money to buy more?No03/17/2025Within the past 12 months, did the food you bought just not last and you didn???t have money to getmore?No03/17/2025Housing StabilityAnswerDate RecordedDo you have housing? (Housing is defined as stable permanent housing and does not include staying ou tside in a car, in a tent, in an abandoned building, in an overnight nursing home, or couch-surfing.)Yes03/17/2025re you worried about losing your housing?No 03/17/2025Financial Resource StrainAnswerDate RecordedWithin the past 12 months, have you or your family members you live with been unable to get utilities (heat, electricity) when it was really needed?No03/17/2025Transportation Needs AnswerDate RecordedWithin the past 12 months, has lack of transportation kept you from medical appointments, getting your medicines, non-medical meetings or appointments, work, or from getting things that you need?No03/17/2025 Interpersonal SafetyAnswerDate RecordedDo you feel physically and emotionally safe where you currently live?Yes03/19/2025Within the past 12 months, have you been hit, slapped, kicked or otherwise physically hurt by someone?No03/19/2025 Within the past 12 months, have you been humiliated or emotionally abused in other ways by your partner or ex-partner?No03/19/2025CommentsNoSex and Gender InformationValueDate RecordedSex Assigned at BirthNot on fileLegal Sex Vvicge6208/20/2012 3:40 AM CSTGender IdentityNot on fileSexual OrientationNot on file Last Filed Vital Signs Vital SignReadingTime TakenCommentsBlood Jbbsyyxs388/8304/01/2025 2:14 PM CDT Recheck BLRbydj8299/16/2025 2:14 PM EPQItqohypamnw27.6 ??C (97.9 ??F)03/21/2025 8:03 AM CDTRespiratory Pwjx128903/21/2025 8:03 AM CDTOxygen Arkgntkntj803% 03/19/2025 6:00 PM CDTInhaled Oxygen Concentration--Lhcbwc58.1 kg (181 lb) 04/01/2025 2:05 PM PWAQdmmnv511.6 cm (5' 6)04/01/2025 2:05 PM CDTBody Mass Index29.21004/01/2025 2:05 PM CDT Plan of Treatment DateTypeDepartmentCare Team (Latest Contact Info)Vlaknhkdvkk19/23/2025 9:45 AM CSTVirtual Visit [address] [place] [phone] 10/21/2025 2:20 PM CSTAncillary Procedure [facility] [address] [place] [address] 10/21/2025 3:15 PM CSTLab [facility] [address] [place] [address] [address] [place] [phone] 11/06/2025 10:15 AM CSTPrenatal Office Visit [address] [place] [phone] Liang Stein MD [address] [place] [address] Health MaintenanceDue DateLast DoneCommentsADVANCE CARE JJOGYZZS1994ANNUAL REVIEW OF HM ZQDBOM7705/19/1994YEARLY PREVENTIVE VISIT1997HPV VACCINE (3 - 2-dose series), 02/12/2009COVID-19 VACCINE (2024- season)2025INFLUENZA VACCINE (#1)2025PAP171, 10/15/2024, 09/28/2023, Additional history existsDTAP/TDAP/TD VACCINE (10 - Td or Tdap)5002/04/2025, 06/28/2023, 05/30/2017, Additional history exists ZOSTER VACCINE (1 of 2)2044HEPATITIS B TWTWDHEEjoqovuuk16/23/1999, 05/22/1999, 03/13/1999MENINGITIS WFFJEQHQgrhiqjkg56/21/2015, 06/10/2009, 06/10/2009HEPATITIS C WZVVPQYKRWninnjzvc42/03/2024, 09/18/2024HIV SCREENING Mafbztwjr59/03/2024, 09/18/2024HQ-2 (once per calendar year)Etxrjrcvn74/16/2025 PNEUMOCOCCAL VACCINE: PEDIATRICS (0 to 5 YEARS) AND AT-RISK PATIENTS (6 to 49 YEARS)Aged OutNo longer eligible based on patient's age to complete this topic Procedures Procedure NamePriorityDate/TimeAssociated DiagnosisCommentsABSTRACT HIVRoutine 09/18/2024 12:30 PM REGIONAL SALES REPRESENTATIVE HEPATITIS C (HIM EXTERNAL RESULT)Finfxmv1609/18/2024 12:30 PM REGIONAL SALES REPRESENTATIVE PAP SMEAR - HIM PATIENT SXOOJKGODxhfyui52/14/2023 from Last 3 Months or Most Recently Relevant to Health Maintenance Results * ABSTRACT HIV (09/18/2024 12:30 PM REGIONAL SALES REPRESENTATIVE)ComponentValueRef RangeTest Method Analysis TimePerformed AtPathologist SignatureHIV 1&2 EXTNon-Reactive [facility]imen (Source)Anatomical Location / LateralityCollection Method / VolumeCollection TimeReceived OunaSjxor70/03/2024 12:30 PM REGIONAL SALES REPRESENTATIVE Narrative [facility] - 09/18/2024 12:30 PM REGIONAL SALES REPRESENTATIVE [facility] - External Lab Results Authorizing ProviderResult TypeResult StatusProvider OutsideLAB - HIM EXTERNAL RESULTFinal ResultPerforming OrganizationAddressCity/State/ZIP CodePhone Number [address] [address], [facility] [phone] * Hepatitis C (HIM External Result) (09/18/2024 12:30 PM REGIONAL SALES REPRESENTATIVE)ComponentValueRef RangeTest MethodAnalysis TimePerformed AtPathologist SignatureHep C HIMSee Scanned DocumentNOSAN JOAQUIN GENERAL HOSPITALpecimen (Source)Anatomical Location / LateralityCollection Method / VolumeCollection TimeReceived Time09/18/2024 12:30 PM REGIONAL SALES REPRESENTATIVE Narrative [facility] - 09/18/2024 12:30 PM REGIONAL SALES REPRESENTATIVE [facility] - External Lab Results Authorizing ProviderResult TypeResult StatusProvider OutsideLAB - [facility] EXTERNAL RESULTFinal ResultPerforming OrganizationAddressCity/State/ZIP CodePhone Number [address] [address], [facility] [phone] * (ABNORMAL) PAP Smear - HIM Patient Reported (12/28/2022)ComponentValueRef RangeTest MethodAnalysis TimePerformed AtPathologist SignaturePAP Smear - HIM Patient ReportedPositive(A)Specimen (Source)Anatomical Location / Laterality Collection Method / VolumeCollection TimeReceived Time12/28/2022 Narrative Angelia Riley - 12/28/2022 [facility] - Progress Note Authorizing ProviderResult TypeResult StatusPatient ReportedLABORATORYFinal Result from Last 3 Months or Most Recently Relevant to Health Maintenance Insurance * Guarantor: Nikia Montague EAccount TypeRelation to PatientDate of BirthPhone Billing AddressPersonal/GawprwEcvhtj67/15/1966 [address] [place] [address] * Guarantor: Nikia Montague EAccount TypeRelation to PatientDate of BirthPhone Billing AddressPersonal/OuxdfiXiowtu07/15/1966 [address] [place] [address] Advance Directives For more information, please contact: [phone] * Full Code (Latest Code Status on File) Date ActivatedDate InactivatedComments03/18/2025 11:49 PM03/21/2025 2:08 PMAll basic and advanced life-sustaining interventions are performed as appropriateQuestion AnswerCommentsCode status determined by:* Discussion with patient/ legal decision maker * Full Code Date ActivatedDate InactivatedComments03/17/2025 10:09 PM03/18/2025 11:49 PMAll basic and advanced life-sustaining interventions are performed as appropriate QuestionAnswerCommentsCode status determined by:* Discussion with patient/ legal decision maker * Full Code Date ActivatedDate InactivatedComments01/07/2025 10:38 PM01/08/2025 3:01 PMAll basic and advanced life-sustaining interventions are performed as appropriate QuestionAnswerCommentsCode status determined by:* Discussion with patient/ legal decision maker * Full Code Date ActivatedDate InactivatedComments11/16/2024 4:39 PM2 4:08 PMAll basic and advanced life-sustaining interventions are performed as appropriateQuestion AnswerCommentsCode status determined by:* Unable to discuss and no AD/POLST on file; continue PREVIOUSLY ORDERED code status * Full Code Date ActivatedDate InactivatedComments11/16/2024 4:39 AM11/16/2024 4:39 PMAll basic and advanced life-sustaining interventions are performed as appropriate QuestionAnswerCommentsCode status determined by:* Unable to discuss and no AD/POLST on file; continue PREVIOUSLY ORDERED code status Care Teams Team MemberRelationshipSpecialty[address] [address] PCP - General11/16/24 No Ref-Primary, Physician 11/16/24 Isabelle Zhang MD [phone], [facility] [address] [place], [place] [address] Assigned OBGYN Provider04/08/25 Liang Stein MD [address] [place], [place] [address] OB/Gyn09/30/25
--- OUTSIDE RECORDS SUMMARY | 2025-10-07 00:57 | XMS_ITS | Clinical Summary ---
Author Organization [facility] Address [address] [place] [id number] Care Team Providers Care Tube Operator Name Role Phone Clinic, No Pcp Or Primary Care Provider Unavaila ble Allergies No known active allergies Medications MedicationSigDispense QuantityRefillsLast FilledStart DateEnd DateStatus naproxen (NAPROSYN) 500 mg tablet Indications:DysmenorrheaTake 1 tablet by mouth 2 times daily with meals. Take BID for dysmenorrhea each 30 tablet ctive lamoTRIgine (LAMICTAL) 25 mg tablet Indications:Depression with anxietyTake 1 tablet twice daily 60 tablet Active LORazepam (ATIVAN) 0.5 mg tab Indications:Depression with anxietyTake 1 tablet by mouth at bedtime if needed. 25 tablet Active DULoxetine (CYMBALTA) 30 mg Delayed-release capsule Indications:Depression with anxietyTAKE ONE CAPSULE BY MOUTH ONE TIME DAILY 30 capsule Active Active Problems ProblemNoted DateDiagnosed DateEncounter for long-term (current) use of vcdgtjdsihh17/24/2015 Overview (09/09/2015): Controlled substance agreement for Lorazepam on file and signed 09/09/2015. Designated pharmacy: [facility] [phone] Prescribing physician:Sasha Moffett CNP. Diagnosis: Depression with Anxiety. Autumn Felix .................... 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 emxzggxp68/02/2015Depression with jzyjxkp0302/17/2015nxiety state, muqymweftwd03/30/2012 Resolved Problems ProblemNoted DateDiagnosed DateResolved LpdeAzncetopntwt43 Immunizations ImmunizationAdministration DatesNext DrjRSaQ2803/13/1999,07/27/1995,1994, 1994,1994Hepatitis B (Peds)10/08/1999,05/22/1999,03/13/1999Hib Conjugate, Wirffbakjkc88/11/1995,1994,1994,1994Human Papilloma Virus Ikpuhxp6306/10/2009,02/12/2009Inactivated Polio Mzxkylk8003/13/1999,07/27/1995 ,1994,1994MENINGOCOCCAL VACCINE 2 VIAL 2MO-55YO (MENVEO)03/06/2015 MMR03/13/1999,07/27/1995Meningococcal Nieqssu5606/10/2009Td (Age >=7 Years) 04/25/2006Tdap03/06/2015 Family History Medical HistoryRelationNameCommentsAlcoholismBrother 1MitchellAlcoholismBrother 2RickyAllergiesBrother 2RickyDogs, cats, seafoodPsychiatric illnessBrother 2 RickyDepressionAlcohol/DrugFatherAlcoholHyperlipidemiaFatherHypertensionFather Psychiatric illnessFatherDepressionDiabetesMaternal GrandfatherAllergiesMother Dogs, cats, seafood, PCNDiabetesMotherGestationalThyroid DiseaseMotherThyroid nodulesCancerPaternal GrandfatherLungHeart DiseasePaternal GrandmotherMIRelation NameStatusCommentsBrother 1MitchellBrother 2RickyFatherMaternal Grandfather MotherPaternal GrandfatherPaternal Grandmother Social History Tobacco UseTypesPacks/DayYears UsedDateSmoking Tobacco: NeverSmokeless Tobacco: Never Tobacco Cessation:Counseling Given: Yes Alcohol UseStandard Drinks/WeekCommentsNo0 (1 standard drink = 0.6 oz pure alcohol)CommentsNoSex and Gender InformationValueDate RecordedSex Assigned at BirthNot on fileLegal YksIsxoer35/13/2023 6:30 PM CSTGender Identity Not on fileSexual OrientationNot on fileOccupationIndustryJob Start DateJob End DateNot on fileNot on fileNot on fileNot on filesalesNot on fileNot on fileNot on file Obstetrics History GravidaParaTermPretermABIABSABEctopicMultipleLivingLive [id number] OutcomeGATotal LaborLabor/2nd/6nnRykogpGpjUgfiScivYZZNkaB5I6OjcsSece2264Uvcx Last Filed Vital Signs Vital SignReadingTime TakenCommentsBlood Nggppqxt106/6609/08/2015 10:42 AM 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 Znolv501709/08/2015 10:42 AM PYTRqffgubywso11.9 ??C (98.4 ??F)09/08/2015 10:42 AM CSTRespiratory Ofrm032911/02/2014 3:14 PM CSTOxygen Adettfxhpc65%09/08/2015 10:42 AM CSTInhaled Oxygen Concentration--Ulptlx90.3 kg (150 lb 8 oz)09/08/2015 10:42 AM IPECxdpyb634.2 cm (5' 4.25)09/02/2015 3:14 PM CSTBody Mass Index25.63 09/02/2015 3:14 PM 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 Plan of Treatment Health MaintenanceDue DateLast DoneCommentsHIV for age 15-65005/19/2009HPV series for age 9-45 (3 - 2-dose series), 02/12/2009MI (ht and wt on same day) for age 18+2012Hepatitis C screening for age 18-7905/19/2012 Depression screening for age 12+Tetanus xmgfphn2103/06/2025 03/06/2015, 04/25/2006COVID-19 vaccine series (2024- season)2025 Influenza Vaccine (#1)2025Pap test for age 21-656111/29/2022, 09/28/2023, 12/28/2022, Additional history existsHepatitis B series for 19+ Jixrqrbnd56/23/1999, 05/22/1999, 03/13/1999Pneumococcal series for age 6-49Aged OutNo longer eligible based on patient's age to complete this topic Procedures Procedure NamePriorityDate/TimeAssociated DiagnosisCommentsHPV HIGH RISKRoutine 09/28/2023 12:00 PM 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 from Last 3 Months or Most Recently Relevant to Health Maintenance Results * (ABNORMAL) HPV HIGH RISK (09/28/2023 12:00 PM 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)ComponentValueRef RangeTest MethodAnalysis TimePerformed AtPathologist SignatureTYPE 16NegativeNegative 10/03/2023 11:31 AM [facility]ORYCENTRAL LABORATORYTYPE 18 WydpvxirAqycohln26/18/2023 11:31 AM [facility]ATORYOTHER HIGH RISK TYPESPositive(A)Mfmwvzsd01/18/2023 11:31 AM 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 [facility]ORATORYSpecimen (Source)Anatomical Location / LateralityCollection Method / VolumeCollection TimeReceived Time Other (Cervical)09/28/2023 12:00 PM CST09/29/2023 12:46 PM 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 Narrative [facility] - 10/03/2023 11:31 AM 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 Specimen is positive for the DNA of any one of, or combination of, the following high risk HPV types: 31, 33, 35, 39, 45, 51, 52, 56, 58, 59, 66, 68. HPV types 16 and 18 DNA were undetectable or below the pre-set threshold. ? Methodology: Jennifer Bella 4800 HPV Test Authorizing ProviderResult TypeResult StatusShclaudia Maciel MDMICROBIOLOGY Final ResultPerforming OrganizationAddressCity/State/ZIP CodePhone Number [facility] [address] [place] [address], from Last 3 Months or Most Recently Relevant [place] [id number] * Guarantor: Fahad Montague DAccount TypeRelation to PatientDate of BirthPhone Billing AddressPersonal/BhmlkxSwuzvb80/19/1966 [address] [place] [address] Care Teams Team MemberRelationshipSpecialtyStart DateEnd Date Clinic, No Pcp Or . PCP - General01/15/16
[2025-10-07 01:12] VITALS: BP 151/98; PULSE 98; RESP 16; TEMP 36.6; O2SAT 100; BMI 27.4
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
[2025-10-07 02:06] LABS: Appearance Urine Clear (Clear)
[2025-10-07] MEDS: ACETAMINOPHEN 500 MG TABLET 1000 MG PO (02:07)
[2025-10-07 02:18] LABS: Hematocrit* 44.0 % (33.0-51.0); Hemoglobin* 15.5 gm/dL (12.0-16.0); Immature Granulocytes Pct Auto 0.4 %; Mean Corpuscular HGB Conc 35 gm/dL (32-36); Mean Corpuscular Hemoglobin 31 pg (26-34); Mean Corpuscular Volume 86 fL (80-100); RDW Coefficient of Variation % 13.6 % (11.5-15.5); Red Blood Count* 5.09 m/uL (4.00-5.20); White Blood Count* 14.15 K/uL (4.50-11.00)
[2025-10-07 02:25] LABS: Immature Granulocytes Abs Auto 0.10 K/uL (0.00-0.30); Lymphocytes Absolute Auto 3.70 K/uL (0.90-2.90); Slide Review Reflex No
[2025-10-07 02:30] LABS: Albumin* 5.0 g/dL (3.3-5.0); Chloride* 108 mmol/L (96-114); Potassium* 4.4 mmol/L (3.6-5.1); Sodium* 136 mmol/L (135-149)
[2025-10-07 02:33] LABS: Alanine Aminotransferase* 15 U/L (4-35); Alkaline Phosphatase* 68 U/L (40-150); Anion Gap 12 mEq/L (7-15); Aspartate Amino Transferase* 28 U/L (12-35); Bilirubin Direct* 0.7 mg/dL (0.0-0.5); Bilirubin Total* 0.9 mg/dL (0.1-1.5); Blood Urea Nitrogen* 10 mg/dL (5-24); Calcium* 8.7 mg/dL (8.4-10.6); Carbon Dioxide* 16 mmol/L (20-32); Creatinine* 0.5 mg/dL (0.5-1.5); Est. Creatinine Clearance* 152.62; Estimated Glomerular Filt Rate 129 ml/min; Glucose* 102 mg/dL (60-115); Total Protein* 8.3 g/dL (6.0-8.3)
[2025-10-07 02:54] LABS: Procalcitonin* < 0.03 ng/mL (<0.50)
--- NOTE | 2025-10-07 03:04 | CRLHL7_ITS ---
For Patients: As a result of the Century Cures Act, medical imaging exams and procedure reports are released immediately into your electronic medical record. You may view this report before your referring provider. If you have questions, please contact your health care provider. INDICATION: Right lower quadrant pain, 6 weeks COMPARISON: None TECHNIQUE: Martinez-scale and color Doppler of the gravid uterus from a transvaginal approach. Martinez-scale and color Doppler and spectral Doppler of the ovaries and adnexa from a transvaginal approach. FINDINGS: Last menstrual period: 08/27/2025 Estimated gestational age: 5 weeks 6 days FIRST TRIMESTER There is an intrauterine gestational sac that measures 7.6 x 5.0 x 6.9 mm for a mean sac diameter of 6.5 mm. This corresponds to a gestational age of 5 weeks 3 days. There is no yolk sac seen. No embryo seen. No perigestational hemorrhage. MATERNAL Right ovary measures 3.6 x 2.0 x 3.3 cm. There is a solid appearing right ovarian lesion that measures 2.0 x 1.8 x 2.1 cm. There is a thick walled cystic lesion in the right ovary measures 2.0 x 1.8 x 2.1 cm, presumably the corpus luteum cyst. Normal color Doppler flow. Normal arterial and venous waveforms on spectral Doppler. The left ovary measures 2.6 x 1.4 x 1.8 cm. No cyst or mass. Normal color Doppler flow. Normal arterial and venous waveforms on spectral Doppler. No pelvic free fluid. During transvaginal exam of the right adnexa, the appendix is not seen. This exam is not adequate to assess for appendicitis. IMPRESSION: 1. Single intrauterine gestation with an estimated gestational age of 5 weeks 3 days based on mean sac diameter. No embryo or yolk sac yet seen. Continued obstetric follow-up recommended. 2. There is a 2.1 cm right ovarian lesion that appears solid. Recommend close attention on short interval follow-up in a patient. There is also a right ovarian corpus luteum cyst. No findings of right ovarian torsion. Dictated by Jessica Arvizu MD @ 10/07/2025 4:17:54 AM (Electronically Signed)
[2025-10-07 04:39] VITALS: BP 110/65; PULSE 78; RESP 16; O2SAT 98
--- NOTE | 2025-10-07 04:45 | CRLHL7_ITS ---
For Patients: As a result of the Cures Act, medical imaging exams and procedure reports are released immediately into your electronic medical record. You may view this report before your referring provider. If you have questions, please contact your health care provider. INDICATION: Right lower quadrant pain, 6 weeks COMPARISON: CT 01/23/2021, same day Ob ultrasound TECHNIQUE: Multiplanar, multisequence MR imaging of the abdomen and pelvis, without IV contrast. The appendicitis protocol was utilized. Contrast: None FINDINGS: Normal appendix. No dilated or inflamed bowel. Moderate stool burden. The included portions of the liver are unremarkable. Normal gallbladder and bile ducts. The included pancreas is normal. Normal spleen size. No adrenal mass. Normal kidneys and upper collecting systems. Normal urinary bladder. There is a small gestational sac in the right uterine fundus. Right ovarian corpus luteum cyst. There is a uterine incision scar that is unremarkable. The gestational sac is remote from the incision. Trace pelvic free fluid. No adenopathy. Unremarkable osseous and musculoskeletal structures. IMPRESSION: 1. Normal appendix. 2. Normal appearance of the uterus for early gestation. 3. No specific explanation seen to explain right lower quadrant pain. Dictated by Jessica Arvizu MD @ 10/07/2025 9:03:04 AM (Electronically Signed)
[2025-10-07 06:25] VITALS: BP 115/70; PULSE 80; RESP 16
== END 2025-10-07 09:57 | disposition home or self-care (01) ==
PROVIDERS: Emergency Provider Family Medicine; PCP Obstetrics & Gynecology
DX: R10.31 Right lower quadrant pain (principal); N83.11 Corpus luteum cyst of right ovary; Z33.1 Pregnant state, incidental; Z3A.01 Less than 8 weeks gestation of pregnancy
CPT/HCPCS: 36415; 74181; 76705; 76817; 76856; 80048; 80076; 81001; 82150; 83690; 84145; 84702; 85025; 86140; 93976; 99284; 99285; A9270; J7030